=== PATIENT | female | born 1990 | race Caucasian/White ===

== ENCOUNTER → 2022-07-11 10:42 | Outpatient (CLI) | payer BC, SELFPAY ==
[2022-07-11 11:45] LABS: Basophils % 0.3 % (0.1-2.0); Eosinophils # 0.1 K/mm3 (0.0-0.4); Eosinophils % 0.7 % (0.1-12.0); Hemoglobin 11.8 g/dL (12.2-16.2); Lymphocytes # 1.9 K/mm3 (0.7-4.5); Lymphocytes % 14.7 % (10-50); Mean Corpuscular HGB Conc 34.9 g/dL (31.8-35.4); Mean Corpuscular Hemoglobin 29.6 pg (27.0-31.2); Mean Corpuscular Volume 84.9 fl (81-99); Mean Platelet Volume 7.6 fl (7.4-10.4); Monocytes # 0.3 K/mm3 (0.1-1.0); Monocytes % 2.3 % (1.7-9.3); Neutrophils # 10.3 K/mm3 (1.8-7.8); Neutrophils % 82.1 % (37.0-80.0); Platelet Count 358 K/mm3 (142-424); Red Cell Distribution Width 14.2 % (11.5-17.5); White Blood Count 12.6 K/mm3 (4.8-10.8)
[2022-07-11 12:27] LABS: Glucose,Fasting 121 mg/dl (74-100)
[2022-07-11 14:11] LABS: Glucose 1 Hour 134 mg/dL (74-100)
== END ==
PROVIDERS: PCP Family Medicine; Visit Provider Student in an Organized Health Care Education/Training Program
DX: Z34.82 Encounter for supervision of other normal pregnancy, second trimester (principal); Z3A.20 20 weeks gestation of pregnancy
CPT/HCPCS: 36415; 82951; 85025

== ENCOUNTER → 2023-04-24 10:24 | Outpatient (CLI) | payer BC, SELFPAY ==
--- NOTE | 2023-04-24 10:31 | XR_ITS ---
PROCEDURE INFORMATION: Exam: XR Left Knee Exam date and time: 04/24/2023 10:37 AM Age: 32 years old Clinical indication: Left; Patient HX: PT C/O pain when bending knee TECHNIQUE: Imaging protocol: Radiologic exam of the left knee. Views: 4 or more views. Total images: 4 COMPARISON: No relevant prior studies available. FINDINGS: Bones/joints: There are mild degenerative changes of the knee joint, predominantly involving the medial joint compartment. No evidence of acute fracture or dislocation. Soft tissues: Soft tissues are within normal limits. IMPRESSION: 1. There are mild degenerative changes of the knee joint, predominantly involving the medial joint compartment. 2. No evidence of acute fracture or dislocation.
== END ==
LOC: RAD 10:25
PROVIDERS: PCP Family Medicine; Visit Provider Family Medicine
DX: M25.562 Pain in left knee (principal)
CPT/HCPCS: 73564

== ENCOUNTER 2024-01-22 17:26 | Emergency (ER) | payer BC, SELFPAY ==
[2024-01-22 17:43] VITALS: BP 121/70; PULSE 120; RESP 18; TEMP 37.8; O2SAT 97; BMI 37.5
--- NOTE | 2024-01-22 17:50 | EXP.UTC ---
Discharge Plan Disposition Patient Disposition: Home, Self-Care Condition: Good Prescriptions Prescriptions: New azithromycin 250 mg tablet See Rx Instructions .ROUTE .COMPLEX Qty: 6 0RF Rx Instructions: For 250 mg dose pack: take 500 mg today (day 1), then 250 mg for 4 days (days 2-5) methylprednisolone [Medrol (Thanh)] 4 mg tablets,dose pack See Rx Instructions .ROUTE .COMPLEX 6 Days Qty: 21 0RF Rx Instructions: 4 mg orally ;Medrol dose taper thanh benzonatate 100 mg capsule 100 mg PO TID PRN (Reason: cough) Qty: 30 0RF Referrals Follow up/Referrals: Provider,Referral, MD [Primary Care Provider] - See instructions Activity Restrictions/Add. Instructions Additional Instructions/Restrictions: Take medication as prescribed. If symptoms persist or worsen, return to clinic or go to PCP. If you become short of air, return to the ER. Take Tylenol/Ibuprofen as needed for pain/fever. Clinical Impressions Clinical Impression: Upper respiratory tract infection Qualifiers: URI type: unspecified URI Qualified Code(s): J06.9 - Acute upper respiratory infection, unspecified Instructions Patient Instructions: DI for Viral Upper Respiratory Infection -- Adult, Acute Bronchitis, DI for Fever (Symptom) -- Adult Print Language Print Language: Maltese Discharge ED Provider: Carley Singh [facility] General Stated complaint: fever 102.5 , cough, congestion, throat and ears h Mode of Arrival: Ambulatory Source of Information: Patient Limitations: No Limitations Time Seen by Provider: 01/22/24 17:50 Description of Symptoms (Recalled from Triage Doc. by RN): Patient reports fever, cough, congestion, headache, earache, and sore throat. HEENT Symptoms (Recalled from RN notes): Yes Resp Symptoms (Recalled from RN notes): No Skin Symptoms (Recalled from RN notes): No MS Symptoms (Recalled from RN notes): No Functional Status (Recalled from RN notes): wnl History of Present Illness Provider Complaint: Patient reports fever, cough, congestion, headache, earache, and sore throat. Pt reports that she started getting sick last week and then yesterday her phlegm changed to a green color and she started running fevers up to 101. She states that she has taken Delsym and Tylenol for her symptoms. 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 Related Data Previous Rx's ?Medication ?Instructions ?Recorded azithromycin 250 mg tablet See Rx Instructions PO .COMPLEX #6 01/22/24 tabs benzonatate 100 mg capsule 100 mg PO TID PRN cough #30 caps 01/22/24 methylprednisolone 4 mg tablets in See Rx Instructions .Route 01/22/24 a dose pack (Medrol (Thanh)) .COMPLEX 6 days #21 tabs Allergies Allergy/AdvReac Type Severity Reaction Status Date / Time acetaminophen [From Lortab] Allergy Rash Verified 01/22/24 17:46 hydrocodone [From Lortab] Allergy Rash Verified 01/22/24 17:46 Worker's Comp Is this a Worker's Comp case?: No [facility] Disclaimer: The information contained in this section may have been updated after the patient was seen, as this information can be updated by other users. Social History Smoking Status: Never smoker alcohol intake: current alcohol intake frequency: holidays/special occasions only current occupational status: employed Travel in the last 8 weeks: Inside the [place] ROS Obtained: Yes All systems reviewed & no additional complaints except as documented Constitutional Constitutional: Reports system reviewed and no additional complaints, except as documented, Reports fever(s), Reports headache(s) and Reports malaise Eyes Eyes: Reports system reviewed and no additional complaints, except as documented ENT Ears, Nose, Mouth, and Throat: Reports system reviewed and no additional complaints, except as documented, Reports otalgia, Reports headache(s), Reports nasal discharge and Reports sore throat Cardiovascular Cardiovascular: Reports system reviewed and no additional complaints, except as documented Respiratory Respiratory: Reports system reviewed and no additional complaints, except as documented, Reports change in phlegm color, Reports chest congestion and Reports cough Gastrointestinal Gastrointestingal: Reports system reviewed and no additional complaints, except as documented Genitourinary Female Genitourinary: Reports system reviewed and no additional complaints, except as documented Musculoskeletal Musculoskeletal: Reports system reviewed and no additional complaints, except as documented Integumentary/Breasts Skin/Breast: Reports system reviewed and no additional complaints, except as documented Neurologic Neurologic: Reports system reviewed and no additional complaints, except as documented and Reports headache(s) Endocrine Endocrine: Reports system reviewed and no additional complaints, except as documented Hematologic/Lymphatic Henatologic/Lymphatic: Reports system reviewed and no additional complaints, except as documented Allergic/Immunologic Allergic/Immunologic: Reports system reviewed and no additional complaints, except as documented Physical Exam General General appearance: alert Comment: ill appearing Head Head exam: atraumatic and normocephalic Eye Eye exam: Present normal appearance ENT ENT exam: Present mucous membranes moist Expanded ENT Exam External ear exam: Present normal external inspection TM/Canal exam: Bilateral TM: bulging and effusion (clear bubbles) Nasal speculum exam: Bilateral: other (clear drainage) Mouth exam: Present normal external inspection Teeth exam: Present normal inspection Comment: tonsils absent Post nasal drainage noted Neck Neck exam: Present normal inspection; Absent lymphadenopathy Chest Chest inspection: Present normal inspection and symmetric chest wall rise Respiratory Respiratory exam: Present other (course sounds throughout with bilateral lower lobe crackles) Cardiovascular Cardiovascular exam: Present tachycardia and normal heart sounds Abdominal Exam Abdominal exam: Present soft and normal bowel sounds Extremities Exam Extremities exam: Present normal inspection Back Exam Back exam: Present normal inspection Neurological Exam Neurological exam: Present alert and oriented X3 Psychiatric Psychiatric exam: Present normal affect and normal mood Skin Skin exam: Present warm, dry and intact Lymphatic Lymphatic Findings: no adenopathy Medical Decision Making Medical Records Screening: Per USPSTF and CDC recommendations, given the prevalence of disease in our region, it is our hospital?s policy to screen for HIV and viral Hepatitis for all patients aged 18 and over and those with ongoing risk factors. Napoleon Inquiry Pt receiving controlled substance: No Napoleon was queried for this patient: No Vital Signs: 01/22/24 17:43 Temperature 100.1 F H Temperature Source Oral Pulse Rate [Radial] 120 H Respiratory Rate 18 Blood Pressure [Right Arm] 121/70 Blood Pressure Mean [Right Arm] 87 Blood Pressure Source [Right Arm] Automatic Cuff Blood Pressure Position [Right Arm] Sitting 02 Sat by Pulse Oximetry 97 Oxygen Delivery Method Room Air Orders (Tests/Meds): ORDERS Category Date Time Status Rapid PCR Covid and Flu A/B Stat Lab 01/22/24 17:46 Ordered
[2024-01-22 17:57] LABS: Coronavirus 19, PCR Not Detected (NotDetected); Influenza A, PCR Not Detected (NotDetected); Influenza B, PCR Not Detected (NotDetected)
[2024-01-22 18:29] VITALS: BP 121/70; PULSE 120; RESP 18; TEMP 37.8; O2SAT 97
== END 2024-01-22 18:30 | disposition home or self-care (01) ==
PROVIDERS: Emergency Provider Nurse Practitioner Family
DX: J20.9 Acute bronchitis, unspecified (principal); R50.9 Fever, unspecified; R51.9 Headache, unspecified; H92.03 Otalgia, bilateral; J06.9 Acute upper respiratory infection, unspecified
CPT/HCPCS: 87636; 99204; 99212; G0463

== ENCOUNTER 2025-03-08 07:35 | Outpatient (CLI) | payer BC, SELFPAY ==
--- OUTSIDE RECORDS SUMMARY | 2024-12-07 10:00 | XMS_ITS ---
Author Organization [facility], [place], operated by [facility] Address [address] [facility] [address] [place] [address] Care Team Providers Care Retail Sales Specialist Name Role Phone Elvira Tomlinson Unavailable [phone] Sultana Damian Unavailable [phone] REASON FOR VISIT 4 week follow up Social History Tobacco Use: Social History Observation Description Date Details (start date - stop date) Never Smoker NA - NA Sex Assigned At : Social History Observation Description Sex Assigned At Female Social History Drugs/Alcohol: Social Info Question Answer Notes Drugs Have you used drugs other than those for medical reasons in the past 12 months? No Alcohol Screen Did you have a drink containing alcohol in the past year? Yes How often did you have a drink containing alcohol in the past year? Monthly or less (1 point) Points 1 Interpretation Negative Tobacco Use: Social Info Question Answer Notes Tobacco Use/Smoking Are you a nonsmoker Encounters Encounter Location Date Provider Diagnosis [facility]- [address] [facility] [address] [place] [address] 12/07/2024 Sultana Damian Plan Of Treatment Next Appt Details Provider Name:Sultana Rickie, 03/15/2025 02:45:00 PM, [address] [facility] [address], [place], [address], Progress Notes * Oliva HENSONDOB:1990 (34 yo F)Acc No.[id number]:12/07/2024 Progress Note Patient: Oliva Amaya Provider: Nicolle Damian APRN :1990 A ge:34 Y S ex:Female Date:12/07/2024 Address:[address], [id number] Subjective: * Chief Complaints: * 4 week follow up * Medical History: Anemia Anxiety Asthma Depression Chronic hypertension in Chronic hypertension in * 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 * OB History: P regnancy History (GPA) Total Pregnancies 2 Full Term 1 Premature 0 AB. Induced 0 AB. Spontaneous 0 Ectopics 0 Multiple Births 0 Living 1 G P : 2 Para: l ivin P regnancy # 1: , Female- Tita, Primary C/S, 6 lbs 11 oz, breast feed, Dr. Tomlinson at [place], 40 weeks,. P regnancy # 2: , , tubal, chronic hypertension, tachycardia, willy-M, Dr. Tomlinson, 7lbs 6.9 oz, 39 weeks. * Surgical History: Tonsillectomy Laparoscope Oral Surgery with sterilization 10/14/2022 * Hospitalization/Major Diagno stic Procedure: 05-05-2017 10/14/22 * Family History: F ather: diagnosed with Unspecified essential hypertension. M atececilio Grand Father: diagnosed with Heart disease, Diabetes mellitus without mention of complication, type II or unspecified type, not stated as uncontrolled, Unspecified essential hypertension. P aternal Grand Mother: diagnosed with Diabetes mellitus without mention of complication, type II or unspecified type, not stated as uncontrolled, Breast cancer. * Social History: T obacco Use: T obacco Use/Smoking A re you a n onsmoker D rugs/Alcohol: D rugs H ave you used drugs other than those for medical reasons in the past 12 months? N o Alcohol Screen D id you have a drink containing alcohol in the past year? Y es H ow often did you have a drink containing alcohol in the past year? M onthly or less (1 point) P oints 1 I nterpretation N egative * Electronic signature of Darrick Damian NP on 03/08/2025 at 07:37 AM EST Sign off status: Pending Visit Status: R /S (Rescheduled) * Provider: Nicolle Damian APRN Date: 0 12/07/2024 Generated for Julio Abraham/Sandro on: 1 05/08/2024 07:37 AM EST
--- OUTSIDE RECORDS SUMMARY | 2025-03-08 07:37 | XMS_ITS | Clinical Summary ---
Author Organization [facility] Address [address] [place] [address] Care Team Providers Care Commanding Officer Homicide Squad Name Role Phone Unavailable Primary Care Provider Unavailabl e Immunizations Immunization Administration Dates Next Due Tdap 03/15/2017 Family History Medical History Relation Name Comments Breast cancer Paternal Grandmother Relation Name Status Comments Paternal Grandmother Social History Tobacco Use Types Packs/Day Years Used Date Smoking Tobacco: Never Comments Unknown Sex and Gender Information Value Date Recorded Sex Assigned at Not on file Legal Sex Female 7:32 PM EDT Gender Identity Not on file Sexual Orientation Not on file Last Filed Vital Signs Vital Sign Reading Time Taken Comments Blood Pressure 133/78 10/11/2019 10:14 AM EDT Pulse 93 10/11/2019 10:14 AM EDT Temperature - - Respiratory Rate - - Oxygen Saturation - - Inhaled Oxygen Concentration - - Weight 111 kg (245 lb 2.4 oz) 10/11/2019 10:14 A M EDT Height 152.4 cm (5') 10/11/2019 10:14 AM EDT Body Mass Index 47.88 10/11/2019 10:14 AM EDT Plan of Treatment Not on file
--- OUTSIDE RECORDS SUMMARY | 2025-03-08 07:38 | XMS_ITS | Clinical Summary ---
[facility] [address] [place] [address] Care Team Providers Care Mobile Paint Specialist Name Role Phone Ava Kinsey Primary Care Provider [phone] Allergies Active Allergy Reactions Criticality Noted Date Comments Hydrocodone-Acetaminophen Itching 06/03/2016 Medications albuterol sulfate HFA 108 (90 Base) MCG/ACT inhaler INHALE 2 PUFFS INTO THE LUNGS EVERY 4 HOURS NEEDED FOR COUGH 09/30/2022 Active dilTIAZem CD (CARDIZEM CD) 120 MG 24 hr capsule Take 1 capsule by mouth Daily. 07/30/2022 Active fluticasone (FLONASE) 50 MCG/ACT nasal spray 2 sprays by Each Nare route Daily. 08/19/2022 Active nystatin (MYCOSTATIN) 320527 UNIT/GM powder 10/12/2022 Active omeprazole (priLOSEC) 20 MG capsule Take 1 capsule by mouth Daily. 07/30/2022 Active levocetirizine (XYZAL) 5 MG tablet Take 1 tablet by mouth Every Evening. Active Vit-Fe Fumarate-FA ( 27-1) 27-1 MG tablet tablet Take by mouth Daily. Active docusate sodium 100 MG capsule Take 1 capsule by mouth 2 (Two) Times a Day As Needed for Constipation . 60 capsule 10/16/2022 10:46 AM EDT 10/16/2022 Active ibuprofen (ADVIL,MOTRIN) 600 MG tablet Take 1 tablet by mouth Every 6 (Six) Hours. 60 tablet 10/16/2022 10:46 AM EDT 10/16/2022 Active Active Problems Problem Noted Date Diagnosed Date Term 10/05/2022 Encounters Date Type Department Care Team Description 01/02/2025 3:55 PM EDT Lab [facility] [place] [address] [place] [address] Decreased libido 01/02/2025 Travel from Last 3 Months Social History Tobacco Use Types Packs/Day Years Used Date Smoking Tobacco: Never Smokeless Tobacco: Never Tobacco Cessation:Counseling Given: Not Answered Alcohol Use Standard Drinks/Week Comments Not Currently 0 (1 standard drink = 0.6 oz pur e alcohol) AUDIT-C Answer Date Recorded Q1: How often do you have a drink containing alcohol? Never 10/14/2022 Q2: How many drinks containi ng alcohol do you have on a typical day when you are drinking? Patient does not drink Q3: How often do you have si x or more drinks on one occasion? Never 10/14/2022 [place] Depression Scale Answer Date Recorded [place] Depression Scale Total 1 10/14/2022 The thought of harming myself has occurred to me . Unrecognized value 10/14/2022 Abuse Screen Answer Date Recorded Unsafe at Home or Work/School Not on file Feels Threatened by Someone? Not on file Does Anyone Keep You from Co ntacting Others or Doint Things Outside the Home? Not on file 10/17/2023 Physical Sign of Abuse Present Not on file 0 10/17/2023 Housing Stability Answer Date Recorded Current Living Arrangements Not on file 09/25 Potentially Unsafe Housing Conditions Not on bean e 10/17/2023 Family and Community Support Answer Joe e Recorded Help with Day-to-Day Activities Not on file 02/05/2023 Lonely or Isolated Not on file 02/05/2023 Employment Answer Date Recorded Do you want help finding or keeping work or a sandi b? Not on file 02/05/2023 Disabilities Answer Date Recorded Concentrating, Remembering, or Making Decisions Difficulty Not on file 10/17/2023 Doing Errands Independently Difficulty Not on fi le 10/17/2023 Education Answer Date Recorded Help with school or training? Not on file Preferred Language Not on file 02/05/2023 Comments No Sex and Gender Information Value Date Recorded Sex Assigned at Female 03/07/2025 8:52 AM EST Legal Sex Female 4:40 PM EST Gender Identity Not on file Sexual Orientation Not on file Last Filed Vital Signs Vital Sign Reading Time Taken Comments Blood Pressure 119/65 10/16/2022 7:25 AM EDT Pulse 98 10/16/2022 7:25 AM EDT Temperature 36.8 C (98.2 F) 10/16/2022 7:25 AM EDT Respiratory Rate 20 10/16/2022 7:25 AM EDT Oxygen Saturation 100% 10/14/2022 10:40 AM EDT Inhaled Oxygen Concentration - - Weight 124 kg (274 lb) 10/14/2022 11:24 AM EDT Height 152.4 cm (5') 10/14/2022 11:24 AM EDT Body Mass Index 53.51 10/14/2022 11:24 AM EDT Plan of Treatment Upcoming Encounters Date Type Department Care Team (Late st Contact Info) Description 03/09/2025 9:15 AM EST Office Visit [facility] [address] [phone] Ewelina Faye [place] [address] [address] Health Maintenance Due Date Last Done Comments Annual Gynecologic Pelvic an d Breast Exam 1988 TDAP/TD VACCINES (1 - Tdap) 07/08/2007 PAP SMEAR 2009 ANNUAL PHYSICAL 10/12/2022 INFLUENZA VACCINE 11/24/2024 HEPATITIS C SCREENING Completed 03/11/2022 Pneumococcal Vaccine 0-49 Aged Out No longer eligible based on patient's age to complete this topic Procedures Procedure Name Priority Date/Time Associated Diagnosis Comments VITAMIN D,25-HYDROXY Routine 01/02/2025 3:58 PM EDT Decreased libido T4, FREE Routine 01/02/2025 3:58 PM EDT Decreased libido TSH Routine 01/02/2025 3:58 PM EDT Decreased libido TESTOSTERONE, FREE, TOTAL Routine 01/02/2025 3:58 PM EDT Decreased libido PROGESTERONE Routine 01/02/2025 3:58 PM EDT Decreased libido ESTRADIOL Routine 01/02/2025 3:58 PM EDT Decreased libido FOLLICLE STIMULATING HORMONE Routine 01/02/2025 3:58 PM EDT Decreased libido SCANNED - LABS 01/02/2025 HEPATITIS C ANTIBODY Routine 03/11/2022 4:54 PM EST 8 weeks gestation of from Last 3 Months or Most Recently Relevant to Health Maintenance Results * Vitamin D 25 Hydroxy (01/02/2025 3:58 PM EDT) 25 Hydroxy, Vitamin D 82.1 30.0 - 100.0 ng/ml 01/02/2025 11:54 PM EDT [facility] Blood Venipuncture / Unknown 01/02/2025 3:58 PM EDT 01/02/2025 4:01 PM EDT Narrative [facility] - 01/02/2025 11:54 PM EDT Reference Range for Total Vitamin D 25(OH) Deficiency <20.0 ng/mL Insufficiency 21-29 ng/mL Sufficiency 30-100 ng/mL Toxicity >100 ng/ml Sultana Damian SURVEY MANAGER LAB BLOOD ORDERABLES Final Re sult [facility]
[address] [place] [address], * Progesterone (01/02/2025 3:58 PM EDT) Progesterone 0.66 ng/mL 01/03/2025 12:28 AM EDT [facility] Blood Venipuncture / Unknown 01/02/2025 3:58 PM EDT 01/02/2025 4:01 PM EDT [facility] - 01/03/2025 12:28 AM EDT Progesterone Reference Ranges: Adult Males: 0.0-0.5 ng/mL Adult Femles: Follicular phase 0.1-0.9 ng/mL Ovulation phase 0.1-12.0 ng/mL Luteal phase 1.8-23.9 ng/mL Postmenopausal 0.0-0.1 ng/mL : First Trimester 11.0-44.3 ng/mL Second Trimester 25.4-83.3 ng/mL Third Trimester 58.7-214.0 ng/mL Results may be falsely increased if patient taking Biotin. [facility] LAB BLOOD ORDERABLES Final Re sult [facility]
[address] [place] [address], * Estradiol (01/02/2025 3:58 PM EDT) Estradiol 677.0 pg/mL 01/03/2025 12:28 AM EDT [facility] Blood Venipuncture / Unknown 01/02/2025 3:58 PM EDT 01/02/2025 4:01 PM EDT [facility] - 01/03/2025 12:28 AM EDT Estradiol Reference Ranges: Adult Males: 7.6-42.6 pg/mL Adult Femles: Follicular phase 12.5-166.0 pg/mL Ovulation phase 85.8-498.0 pg/mL Luteal phase 43.8-211.0 pg/mL Postmenopausal <6.0-54.7 pg/mL : First Trimester 215.0- >4300.0 pg/mL Child (1-10 years): Male <6.0-20.0 pg/mL Female 6.0-27.0 pg/mL Results may be falsely increased if patient taking Biotin. us Sultana Damian SURVEY MANAGER LAB BLOOD ORDERABLES Final Re sult Performing Organization Address [facility]/ZIP Co de Phone Number [facility]
[address] [place] [address], * Testosterone, Free, Total (01/02/2025 3:58 PM EDT) Testosterone, Total 13 8 - 60 ng/dL 01/11/2025 1:07 AM EDT [facility] Testosterone, Free <0.2 0.0 - 4.2 pg/mL 01/11/2025 1:07 AM EDT [facility] Blood Venipuncture / Unknown 01/02/2025 3:58 PM EDT 01/02/2025 4:01 PM EDT Narrative [facility] - 01/11/2025 1:07 AM EDT [facility]formed at: [facility] [address] [place] [id number] Hydrography Teacher: Anam Harris PhD, Phone: [phone] Performed at: [address] [id number] Hydrography Teacher: Jv Blanco MD, Phone: [phone] Sultana Damian [facility] LAB BLOOD ORDERABLES Final Re sult Performing Organization Address [facility] Co de Phone Number [facility] [address] [place] [address], * (ABNORMAL) TSH (01/02/2025 3:58 PM EDT) Pathologist [facility] TSH 4.600(H) 0.270 - 4.200 uIU/mL 01/03/2025 12:28 AM EDT [facility] Blood Venipuncture / Unknown 01/02/2025 3:58 PM EDT 01/02/2025 4:01 PM [facility] Final Re sult Performing Organization Address City/[facility]/ZIP Co de Phone Number [facility]
[address] [place] [address], * T4, Free (01/02/2025 3:58 PM EDT) Free T4 1.32 0.92 - 1.68 ng/dL 01/03/2025 12:28 AM EDT [facility] Blood Venipuncture / Unknown 01/02/2025 3:58 PM EDT 01/02/2025 4:01 PM EDT [facility] LAB BLOOD ORDERABLES Final Re sult [facility]
[address] [place] [address], * Follicle Stimulating Hormone (01/02/2025 3:58 PM EDT) FSH 3.76 mIU/mL 01/03/2025 12:28 AM EDT [facility] Blood Venipuncture / Unknown 01/02/2025 3:58 PM EDT 01/02/2025 4:01 PM EDT Narrative [facility] - 01/03/2025 12:28 AM EDT FSH Reference Ranges: Adult Males: 1.5-12.4 mIU/mL Adult Females: Folicular Phase 3.5-12.5 mIU/ml Ovulation Phase 4.7-21.5 mIU/ml Lutal Phase 1.7-7.7 mIU/ml Postmenopausal 25.8-134.8 mIU/ml [facility] LAB BLOOD ORDERABLES Final Re sult [facility]
[address] [place] [address], * LABS SCANNED (01/02/2025) us [facility] LAB BLOOD ORDERABLES Final Re sult * Hepatitis C Antibody (03/11/2022 4:54 PM EST) Hepatitis C Ab Non-Reacti ve Non-Reacti ve 03/12/2022 2:08 AM EST [facility] Blood Venipuncture / Unknown 03/11/2022 4:54 PM EST 03/11/2022 4:54 PM EST Narrative [facility] - 03/12/2022 2:08 AM EST Results may be falsely decreased if patient taking Biotin. us Elvira Tomlinson MD LAB BLOOD ORDERABLES Final Re sult [facility]
[address] [place] [address], from Last 3 Months or Most Recently Relevant to Health Maintenance Insurance [employer] Member Subscriber Plan / Payer (Ef fective 2021-Present) Name:Oliva Vanegas Relation to Subscriber:Self Name:Oliva Vanegas Payer ID:[id number] (NAIC) Type:Not on file Address: [facility] [id number] [phone] Advance Directives * CPR (Attempt to Resuscitate) (Latest Code Status on File) Date Activated Date Inactivated Comments 10/14/2022 10:55 AM 10/16/2022 5:09 PM Question Answer Comments Code Status (Patient has no pulse and is not breathing): CPR (Attempt to Resuscitate) Medical Interventions (Patie nt has pulse or is breathing): Full * CPR (Attempt to Resuscitate) Date Activated Date Inactivated Comments 10/14/2022 6:15 AM 10/14/2022 10:55 AM Question Answer Comments Code Status (Patient has no pulse and is not breathing): CPR (Attempt to Resuscitate) Medical Interventions (Patie nt has pulse or is breathing): Full Support Level Of Support Discussed With: Patient Care Teams Mobile Paint Specialist Relationship Specialty Start Date End Date Ava Kinsey PA [address] [place] [address] PCP - General 03/07/25
--- OUTSIDE RECORDS SUMMARY | 2025-03-08 07:38 | XMS_ITS | Continuity of Care Document ---
Author Organization [facility] Smart Plate, James [employer] [facility] Address [address] [place] [address] Care Team Providers Care Skill Labor Name Role Phone GENARO NICOLE Primary Care Provider [phone] Assessment No assessment recorded. Plan of Treatment Reminders Order Date Submit Date Provider Last Modified By Organization Details Last Modified Time Details Appointments BH NEW INTAKE 60 2024 02:00P Carlos Alberto Barney DNP Not available Not available Not available Lab T3, free, serum or plasma 2024 025 [facility] [address] [place], [address], 03/01/2025 20:07:58 T4, free, serum 2024 025 [facility] [address] [place], [address], 03/01/2025 20:07:58 TSH, serum or plasma 2024 025 [facility] [address] [place], [address], 03/01/2025 20:07:53 thyroid peroxidas e (tpo) Ab, serum 2024 025 [facility] [address] [place], [address], 03/01/2025 20:07:57 tsi (thyroid- stimulati ng immunoglo bulin), serum [address] [facility] [address] [place], [address], 03/01/2025 20:07:56 dhea, serum [address] [facility] [address] [place], [address], 03/01/2025 20:07:54 insulin, serum 2024 025 [facility] [address] [place], [address], 03/01/2025 20:07:57 prolactin , serum [address] [facility] [address] [place], [address], 03/01/2025 20:07:55 anti-andrew erian hormone (amh), serum [address] [facility] [address] [place], [address], 03/01/2025 20:07:53 iron + TIBC + ferritin, serum [address] [facility] [address] [place], [address], 03/01/2025 20:07:52 HFE gene mutation analysis, blood or tissue [address] [facility] [address] [place], [address], 03/01/2025 20:07:54 RODNEY (antinucl ear antibodie s) screen, serum [address] [facility] [address] [place], [address], 03/01/2025 20:07:56 erythrocy te sedimenta tion rate by westergre n method [address] [facility] [address] [place], [address], 03/01/2025 20:07:56 C reactive protein, QN, serum or plasma [address] [facility]), [address] [place], [address], 03/01/2025 20:07:57 rf (rheumato id factor), serum [address] [facility]), [address] [place], [address], 03/01/2025 20:07:55 Hepatitis C IgG Ab, qual, serum [address] [facility]), [address] [place], [address], 03/01/2025 20:07:53 HIV 1 + 2, meaningfu l use set [address] [facility]), [address] [place], [address], 03/01/2025 20:07:55 Referral None recorded. Procedures None recorded. Surgeries None recorded. Imaging None recorded. Medication Orders None recorded. Patient TargetsNo targets recorded. Patient Instructions Encounter Date Encounter Id Patient Instructions Last Modified By Organization Details Last Modified Time 02/19/2025 leg and ankle edema: care instructions [email or web address] Not available 02/19/2025 17:45:04 Decreased Female Libido: Care Instructions [email or web address] Not available 02/19/2025 17:45:04 mental health assessment* SHERLY Not available 02/20/2025 15:37:06 MHI Packet Adult [email or web address] Not available 02/19/2025 16:58:59 HIV testing: car e instructions Not available 02/20/2025 10:18:02 Reason for Referral None Reported. Results Created Date Observation Date Name Description Value Unit Range Abnormal Flag Note LastModifiedBy Organization Detail LastModifiedTime 02/21/2002/21/2025 FE+TI BC+FE R iron bind.cap.(TI BC) 262 ug/dL 250-45 0 normal Not Available [facility] ([facility]) [address], [place], [address], 03/01/2025 20:07:52 02/21/20 25 02/21/2025 FE+TI BC+FE R UIBC 171 ug/dL 131-42 5 normal Not Available [facility] ([facility]) [address] [place], [address], 03/01/2025 20:07:52 02/21/20 25 02/21/2025 FE+TI BC+FE R iron 91 ug/dL 27-159 normal Not Available [facility] ([facility]) [address] [place], [address], 03/01/2025 20:07:52 02/21/2002/21/2025 FE+TI BC+FE R iron saturation 35 % 15-55 normal Not Available [facility] ([facility]) [address] [place], [address], 03/01/2025 20:07:52 02/21/20 25 02/21/2025 FE+TI BC+FE R ferritin 329 NG/mL 15-150 above high normal Not Available [facility] ([facility]) [address] [place], [address], 03/01/2025 20:07:52 02/21/2002/21/2025 HCV ANTIB JOAN CASCA DE(PC R/GEN O) HCV Ab Non Reacti ve non reacti ve Not Available [facility] ([facility]) [address] [place], [address], 03/01/2025 20:07:53 02/21/20 25 02/21/2025 HCV ANTIB JOAN CASCA DE(PC R/GEN O) interpretati on: Commen t Not infec bertram with HCV unles s early or acute infec tion is suspe cted (whic h may be delay ed in an immun ocomp romis ed indiv idual ), or other evide nce exist s to indic ate HCV infec tion. Not Available [facility] ([facility]) [address], [place], [address], 03/01/2025 20:07:53 02/21/20 25 02/22/2025 ANTI- MULLE DANO HORMO NE (AMH) anti-mulleri an hormone (amh) 1.09 NG/mL For assay s emplo wayne antib odies , the possi bilit y exist s for inter feren ce by heter ophil e antib odies in the sampl es.1 1.Angie [place]. Inter feren dannielle in Immun oassa ys - still a threa t. Clin. Chem. 2000; 46: 1037- 1038. This test was devel misael and its perfo rmanc e zackary cteri stics deter mined by [facility]. It has not been clear ed or appro myra by the Food and Drug Admin istra tion. Refer ence Range : Femal es 36 - 40y: 0.42 - 8.34 Media n 1.69 AMH jamarcus ntrat ions of >= 1.06 ng/mL is corre lated with a william r respo nse to ovari an stimu latio n, produ chichi more retri evabl e oocyt es and highe r odds of live accor ding to Nyla sandra et al. Trisha white and Steri lity. 2010: 94:28 24-28 27. [facility] nt AMH test metho d corre lates with the study metho d with a slope of 0.94. Femal es at risk of ovari an hyper stimu latio n syndr ome or polyc ystic ovari an syndr ome (PCOS ) may exhib it eleva bertram serum AMH jamarcus ntrat ions. AMH level s from PCOS patie nts may be 2 to 5 fold highe r than age-a pprop riate refer ence inter miracle value s. Granu losa cell tumor s of the ovary may secre te AMH along with other tumor marke rs. [facility] bertram AMH is not speci fic for cris flannery , and the assay shoul d not be used exclu sivel y to diagn ose or exclu de an AMH-s ecret ing ovari an tumor . Not Available [facility] [address] [facility] [address], [place], [address], 03/01/2025 20:07:53 02/21/20 25 02/26/2025 THYRO ID STIMU LATIN G HORMO NE TSH-icma 4.1 uu/mL Refer ence Range : Non-P regna nt Adult 0.450 -4.50 0 Pregn maxine First Trime ster 0.100 -4.00 0 Secon d Trime ster 0.200 -4.00 0 Third Trime ster 0.300 -4.50 0 Not Available [facility] [address] [facility] [address], [place], [address], 03/01/2025 20:07:53 02/21/2002/26/2025 HERED .HEMO CHROM ATOSI S, DNA hereditary hemochromato sis Commen t Resul ts: c.845 G>A (p.Cy s282T yr) - Not Detec bertram c.187 C>G (p.Hi s63As p) - Detec bertram, heter ozygo us c.193 A>T (p.Se r65Cy s) - Not Detec bertram Not assoc iated with incre ased risk to devel op clini courtney sympt oms of Hered itary Hemoc hroma tosis . In sympt omati c indiv idual s, other cause s of iron overl oad shoul d be evalu ated. See Addit ional Infor matio n and Comme nts. Addit ional Clini courtney Infor matio n: Hered itary hemoc hroma tosis (HFE relat ed) is an autos omal reces sive iron stora ge disor felix. Patie nts may have a chinmay ic diagn osis of hered itary hemoc hroma tosis and never show clini courtney sympt oms. Clini courtney sympt oms typic ally appea r betwe en 40 to 60 years in males and after menop ause in femal es. Signs and sympt oms may inclu de organ damag e, prima rily in the liver , risk for hepat ocell ular carci noma, diabe alexandrea, and heart disea se due to iron accum ulati on. Life expec tancy may be decre ased in indiv idual s who devel op cirrh osis. Treat ment for clini manuel sympt omati c indiv idual s may inclu de thera peuti c phleb otomy . Liver trans plant may be used to treat end stage liver failu re. For preve ntive care, monit oring for iron overl oad is recom arvin d for patie nts who are homoz ygous for c.845 G>A (p.Cy s282T yr) and have yet to exper ience clini courtney sympt oms. Comme nts: The most commo n HFE varia nts assoc iated with hered itary hemoc hroma tosis are c.845 G>A (p.Cy s282T yr), c.187 C>G (p.Hi s63As p), c.193 A>T (p.Se r65Cy s). While patie nts homoz ygous for c.845 G>A (p.Cy s282T yr) are the most likel y to prese nt clini courtney sympt oms, less than 10% devel op clini manuel signi fican t iron overl oad with tissu e and organ damag e. Chinmay ic couns eling is recom arvin d to discu ss the poten tial clini courtney impli catio ns of posit je resul ts, as well as recom menda tions for testi ng famil y membe rs. Chinmay ic Coord inato rs are avail able for healt h care provi ders to discu ss resul ts at [phone] Test Detai ls: Three varia nts ramos zed: c.845 G>A (p.Cy s282T yr), commo nly refer red to as C282Y c.187 C>G (p.Hi s63As p), commo nly refer red to as H63D c.193 A>T (p.Se r65Cy s), commo nly refer red to as S65C Metho ds/Li mitat ions: DNA Ramos sis of the HFE gene ([id number]) was perfo rmed by PCR ampli ficat ion follo wed by restr ictio n enzym e diges tion ramos ses. Resul ts must be combi magdalene with clini courtney infor matio n for the most accur ate inter preta tion. Molec ular- based testi ng is highl y accur ate, but as in any labor atory test, diagn ostic error s may occur . False posit je or false negat je resul ts may occur for reaso ns that inclu de chinmay ic varia nts, blood trans fusio ns, bone marro w trans plant ation , somat ic or tissu e-spe cific mosai cism, misla beled sampl es, or teresa eous repre senta tion of famil y relat ionsh ips. This test was devel oped and its perfo rmanc e zackary cteri stics deter mined by [facility]. It has not been clear ed or appro myra by the Food and Drug Admin istra tion. Refer ences : Julio BR, Cayetano PC, Frankyl ey KV, Darwin camarillo LW, Josemanuel camarillo ; Ameri can Assoc iatio n for the Study of Liver Disea ses. Diagn osis and manag ement of hemoc hroma tosis : 2011 pract ice guide line by the Ameri can Assoc iatio n for the Study of Liver Disea ses. Hepat ology . 2010;5 4(1): 328-4 3. doi: 10.10 02/he p.243 30. PMID: 78746 290; PMCID : PMC31 21832 . Allie Gonsalez ot P, Nila willis DW, Jb r H, Kane oropeza O, Lucia n S, Almariely o I, Morbrad s M, Dandre y S. EMQN best pract ice guide lines for the molec ular chinmay ic diagn osis of hered itary hemoc hroma tosis (HH). Eur J Hum Chinmay . 2016 Jul;2 4(4): 479-9 5. doi: 10.10 /ej hg.20 15.12 8. Ep2014Oct 31. PMID: 88554 218; PMCID : PMC49 31168 . Not Available [facility] ([facility]) [address], [place], [address], 03/01/2025 20:07:54 02/21/2002/26/2025 HERED .HEMO CHROM ATOSI S, DNA reviewed by: Kingston Aguirer ical [place] nent perfo rmed at [facility] [place] Paola wright [place] nent perfo rmed by: Rain Chavez , PhD, [facility] YJTGD 9, [facility], [address] [place] [address] Not Available [facility] ([facility]) [address] [facility], [place], [address], 03/01/2025 20:07:54 02/21/2003/01/2025 DHEA, SERUM dehydroepian drosterone (DHEA) 123 NG/dL 31-701 Not Available [facility] ([facility]) [address] [place], [address], 03/01/2025 20:07:54 02/21/20 25 02/21/2025 PROLA CTIN prolactin 16.8 NG/mL 4.8-33 .4 normal Not Available [facility] ([facility]) [address] [place], [address], 03/01/2025 20:07:55 02/21/20 25 02/21/2025 RHEUM ATOID FACTO R (RF) rheumatoid factor (rf) 10.0 IU/mL <14.0 normal Not Available [facility] ([facility]) [address] [place], [address], 03/01/2025 20:07:55 02/21/20 25 02/21/2025 HIV AB/P2 4 AG WITH REFLE X HIV Ab/P24 Ag screen Non Reacti ve non reacti ve HIV-1 /HIV- 2 antib odies and HIV-1 p24 antig en were NOT detec bertram. There is no labor atory evide nce of HIV infec tion. HIV Negat je Not Available [facility] ([facility]) [address] [place], [address], 03/01/2025 20:07:55 02/21/20 25 02/24/2025 THYRO ID STIM IMMUN OGLOB ULIN thyroid stim immunoglobul in <0.10 IU/L 0.00-0 .55 Not Available [facility] ([facility]) [address] [place], [address], 03/01/2025 20:07:56 02/21/20 25 02/21/2025 RODNEY W/REF FATEMEH IF POSIT JE RODNEY direct Negati ve negati ve Not Available [facility] ([facility]) [address] [place], [address], 03/01/2025 20:07:56 02/21/20 25 02/21/2025 ERYTH ROCYT E SEDIM ENTAT ION RATE erythrocyte sedimentatio n rate 5 mm/HR 0-32 normal Not Available [facility] ([facility]) [address] [place], [address], 03/01/2025 20:07:56 02/21/20 25 02/21/2025 INSUL IN insulin 7.4 uIU/m L 2.6-24 .9 normal Not Available [facility] ([facility]) [address] [place], [address], 03/01/2025 20:07:57 02/21/20 25 02/21/2025 C-RYAN CTIVE PROTE IN, QUANT C-reactive protein, quant 5 mg/L 0-10 normal Not Available [facility] ([facility]) [address] [place], [address], 03/01/2025 20:07:57 02/21/2002/21/2025 THYRO ID PEROX IDASE (TPO) AB thyroid peroxidase (tpo) Ab 18 IU/mL 0-34 normal Not Available [facility] ([facility]) [address] [place], [address], 03/01/2025 20:07:57 02/21/2002/21/2025 TRIIO DOTHY CLAIRE E (T3), FREE triiodothyro nine (T3), free 2.6 pg/mL 2.0-4. 4 normal Not Available [facility] ([facility]) [address] [place], [address], 03/01/2025 20:07:58 02/21/2002/21/2025 T4,FR EE(DI RECT) T4,free(dire ct) 1.51 NG/dL 0.82-1 .77 normal Not Available [facility] ([facility]) [address] [place], [address], 03/01/2025 20:07:58 Result Notes None recorded. Problems Name Problem SNOMED Code Status Onset Date Resolution Date Notes Provider Name and Address Organization Details Recorded Time Influenz a vaccine needed 44152412039 06 Completed 201905/09/2024 Problem Code: Z23; Problem Code Type: ICD-10; Marily Diaz PA-C [address] [place] [address], [address], [employer] 10:27:52 Dysuria 88376952 Completed 202005/09/2024 Problem Code: R30.0; Problem Code Type: ICD-10; Marily Diaz PA-C [address] [place] [address], [address] 8, [employer] 10:27:12 Acute respirat ory infectio ns 508725820 Completed 202005/09/2024 Problem Code: J22; Problem Code Type: ICD-10; Marily Diaz PA-C [address] [place] [address], [address] 8, [employer] 10:27:02 Bronchit is 97405794 Completed 202005/09/2024 Problem Code: J40; Problem Code Type: ICD-10; Marily Diaz PA-C [address] [place] [address], [address] 8, [employer] 10:27:07 Acute cystitis 12941139 Completed 202105/09/2024 Problem Code: N30.00; Problem Code Type: ICD-10; Marily Diaz PA-C [address] [place] [address], [address] 8, [employer] 10:26:56 Menometr orrhagia 418332768 Active 2024 [place] [place] [address] [place] [address], [address] 8, [employer] 17:39:48 Thyroid stimulat ing hormone level above referenc e range 517118839 Active 2024 [place] [address] [place] [address], [address] 8, [employer] 17:41:04 Edema of lower extremit y 602534832 Active 2024 [place] [address] [place] [address], [address] 8, [employer] 17:41:08 Reduced libido 1247765 Active 2024 [place] [place] [address] [place] [address], 05554[address]498 8, [employer] 17:41:13 Serum ferritin above referenc e range 267164190 Active 2024 [place] [place] [address] [place] [address], 40648[address]027 8, [employer] 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 17:43:26 Anxiety 35091544 Active 2024 [place] [place] [address] [place] [address], 35[address]450 8, [employer] 09:20:56 Primary hypothyr oidism 25887148 Active 2024 [place] [place] [address] [place] [address], 59667-942 8, [employer] 09:21:13 Protein level - finding 749103711 Active 2024 [place] [place] [address] [place] [address], 14978-198 8, [employer] 15:54:05 Problem Notes None recorded. Procedures Surgical History Date Name Laterality Status Provider Name and Address Organization Details Recorded Time 01/04/20 section completed Not Available Count includes the [facility] 09/2021 22:56:12 01/04/20 21 tonsillectomy and adenoidectomy completed Not Available Count includes the [facility] 12/30/2021 22:56:13 total salpingectomy completed [facility] [employer] [facility] 02/19/2025 16:32:20 Imaging Results None recorded. Procedure Notes None recorded. Medical Equipment None Reported. Allergies Allergen ID Allergen Name Allergen Category Reaction Reaction Severity Criticality Documentation Date Start Date Code Code System Note Provider Name and Address Organization Details Recorded Time 98535 acetamino phen / hydrocodo ne medicatio n Not available Not available Not available 12/30/2021 64855 2 RxNorm Not Available Count includes the [facility] 22:56:31 Medications Name Sig Start Date Stop Date Status Note LastModified by Organization Details LastModified Time amoxicillin 500 mg capsule TAKE 1 CAPSULE BY MOUTH EVERY 8 HOURS 01/09 completed Not Available Not Available Not Available promethazin e-DM 6.25 mg-15 mg/5 mL oral syrup take 5 -7.5milli liters by oral route every 4 hours as needed, not to exceed 30 mL in 24 hours 07/07 completed Not Available Not Available Not Available potassium chloride ER 10 mEq capsule,ext ended release TAKE 1 CAPSULE BY MOUTH ONCE DAILY 05/09 completed Not Available Not Available Not Available prednisone 10 mg tablet TAKE 2 TABLETS BY MOUTH ONCE DAILY FOR 2 DAYS, THEN 1 TAB ONCE DAILY FOR 2 DAYS, THEN 1/2 (ONE-HALF ) TAB ONCE DAILY FOR 2 DAYS 01/09 completed Not Available Not Available Not Available azithromyci n 250 mg tablet TAKE 2 TABLETS BY MOUTH TODAY, THEN TAKE 1 TABLET DAILY FOR 4 DAYS 05/09 completed Not Available Not Available Not Available fluconazole 150 mg tablet TAKE 1 TABLET BY MOUTH A ONE TIME DOSE 05/09 completed Not Available Not Available Not Available valacyclovi r 1 gram tablet TAKE 1 TABLET BY MOUTH EVERY 8 HOURS 02/19 completed Not Available Not Available Not Available fluconazole 200 mg tablet take 1 tablet (200 mg) by oral route once daily 08/20 completed Not Available Not Available Not Available phenazopyri dine 200 mg tablet TAKE 1 TABLET BY MOUTH THREE TIMES DAILY 02/19 completed Not Available Not Available Not Available potassium chloride ER 10 mEq tablet,exte nded release TAKE 1 TABLET BY MOUTH ONCE DAILY 05/09 completed Not Available Not Available Not Available ciprofloxac in 250 mg tablet 1 tablet po bid x 7 days 07/08 completed Not Available Not Available Not Available sulfamethox azole 800 mg-trimetho prim 160 mg tablet TAKE 1 TABLET BY MOUTH TWICE DAILY 05/09 completed Not Available Not Available Not Available ondansetron 8 mg disintegrat ing tablet DISSOLVE 1 TABLET ON THE TONGUE EVERY 8 HOURS NEEDED 05/09 completed Not Available Not Available Not Available levothyroxi ne 25 mcg tablet Take 1 tablet every day by oral route for 90 days. 2024 active Not Available Not Available Not Avai lable amoxicillin 875 mg tablet TAKE 1 TABLET BY MOUTH EVERY 12 HOURS FOR 7 DAYS 06/16 completed Not Available Not Available Not Available diltiazem 120 mg tablet take 1 tablet (120 mg) by oral route 3 times per day 05/09 completed Not Available Not Available Not Available famciclovir 500 mg tablet TAKE 1 TABLET BY MOUTH EVERY 8 HOURS FOR 5 DAYS 02/19 completed Not Available Not Available Not Available benzonatate 100 mg capsule 05/09 completed Not Available Not Available Not Available diltiazem ER 90 mg capsule,ext ended release 12 hr TAKE 1 CAPSULE BY MOUTH ONCE DAILY 02/19 completed Not Available Not Available Not Available sertraline 25 mg tablet Take 1 tablet every day by oral route for 90 days. 2024 active Not Available Not Available Not Avai lable omeprazole 20 mg capsule,del ayed release TAKE 1 CAPSULE BY MOUTH EVERY DAY active Not Available Not Available No t Available diltiazem CD 120 mg capsule,ext ended release 24 hr TAKE 1 TABLET BY MOUTH EVERY EVENING 02/19 completed Not Available Not Available Not Available furosemide 20 mg tablet TAKE 1 TABLET BY MOUTH ONCE DAILY 05/09 completed Not Available Not Available Not Available nystatin 100,000 unit/gram topical powder APPLY TO AFFECTED AREA EXTERNALL Y TWICE A DAY 05/09 completed Not Available Not Available Not Available ibuprofen 600 mg tablet 05/09 completed Not Available Not Available Not Available cefuroxime axetil 500 mg tablet TAKE 1 TABLET BY MOUTH TWICE A DAY 08/20 completed Not Available Not Available Not Available methylpredn isolone 4 mg tablets in a dose pack 05/09 completed Not Available Not Available Not Available albuterol sulfate HFA 90 mcg/actuati on aerosol inhaler INHALE 1 TO 2 PUFFS BY MOUTH EVERY 4 TO 6 HOURS 05/09 completed Not Available Not Available Not Available ondansetron 4 mg disintegrat ing tablet DISSOLVE 1 TABLET IN MOUTH EVERY 8 HOURS NEEDED FOR NAUSEA AND VOMITING active Not Available Not Available No t Available cefdinir 300 mg capsule TAKE 1 CAPSULE BY MOUTH TWICE DAILY FOR 7 DAYS 08/30 completed Not Available Not Available Not Available fluticasone propionate 50 mcg/actuati on nasal spray,suspe nsion USE TWO SPRAYS IN EACH NOSTRIL ONCE DAILY FOR 90 DAYS. active Not Available Not Available No t Available amoxicillin 875 mg-laylau m clavulanate 125 mg tablet TAKE 1 TABLET BY MOUTH TWICE DAILY active Not Available Not Available No t Available bupropion HCl XL 150 mg 24 hr tablet, extended release TAKE 1 TABLET BY MOUTH IN THE MORNING 05/09 completed Not Available Not Available Not Available nitrofurant oin monohydrate /macrocryst als 100 mg capsule TAKE 1 CAPSULE BY MOUTH EVERY 12 HOURS FOR 5 DAYS 02/19 completed Not Available Not Available Not Available duloxetine 30 mg capsule,del ayed release TAKE 1 CAPSULE BY MOUTH ONCE DAILY 05/09 completed Not Available Not Available Not Available hydrochloro thiazide 12.5 mg tablet TAKE 1/2 TO 1 (ONE-HALF TO ONE) TABLET BY MOUTH ONCE DAILY 05/09 completed Not Available Not Available Not Available lisdexamfet amine 50 mg capsule TAKE 1 CAPSULE BY MOUTH ONCE DAILY 02/19 completed Not Available Not Available Not Available lisdexamfet amine 30 mg capsule TAKE 1 CAPSULE BY MOUTH ONCE DAILY 05/09 completed Not Available Not Available Not Available lisdexamfet amine 40 mg capsule TAKE 1 CAPSULE BY MOUTH IN THE MORNING 05/09 completed Not Available Not Available Not Available oxycodone 10 mg tablet 05/09 completed Not Available Not Available Not Available Wegovy 2.4 mg/0.75 mL subcutaneou s pen injector INJECT 1 AUTO-INJE CTOR SUBCUTANE OUSLY ONCE A WEEK 02/19 completed Not Available Not Available Not Available Wegovy 0.25 mg/0.5 mL subcutaneou s pen injector 05/09 completed Not Available Not Available Not Available Mounjaro 10 mg/0.5 mL subcutaneou s pen injector Inject 0.5 mL every week by subcutane ous route for 28 days. 2024 active Not Available Not Available Not Avai lable Mounjaro 12.5 mg/0.5 mL subcutaneou s pen injector INJECT 1 PEN UNDER SKIN WEEKLY active Not Available Not Available No t Available Zepbound 10 mg/0.5 mL subcutaneou s pen injector INJECT 1 PEN SUBCUTANE OUSLY ONCE A WEEK 02/19 completed Not Available Not Available Not Available Zepbound 5 mg/0.5 mL subcutaneou s pen injector INJECT 1 AUTO-INJE CTOR INTO THE SKIN ONCE WEEKLY 05/09 completed Not Available Not Available Not Available Zepbound 2.5 mg/0.5 mL subcutaneou s pen injector INJECT 1 SYRINGE SUBCUTANE OUSLY ONCE A WEEK 05/09 completed Not Available Not Available Not Available Zepbound 12.5 mg/0.5 mL subcutaneou s pen injector INJECT 1 SYRINGE SUBCUTANE OUSLY ONCE A WEEK 02/19 completed Not Available Not Available Not Available Zepbound 7.5 mg/0.5 mL subcutaneou s pen injector INJECT 7.5 MG (0.5 ML) UNDER THE SKIN INTO THE APPROPRIA TE AREA ONCE WEEKLY 05/09 completed Not Available Not Available Not Available Vitals Date Recorded Body height Body mass index (BMI) Body weight Oxygen saturation Oxygen saturation in Arterial blood by Pulse oximetry Heart rate Body temperature Systolic And Diastolic Provider Name and Address Organization Details Last Updated DateTime 149.86 cm 28.5 kg/m2 18427.2 4 g 98 % 98 % 82 /min 97.5 [degF] 102/72 mm[Hg] [facility] [employer]. 16:37:12 Social History Question Answer Notes LastModified by Organizat ion Details LastModified Time Tobacco Smoking Status Never Smoker [facility] istoryQ uestion : 'Tobacc o/Alcoh ol/Supp lements '; [facility] istoryR esponse : 'Never Smoker' ; Not Available [facility] 12/30/2021 22:58:45 Do You Have An Advance Directive? No Information not available 02/19/2025 Is Your Home Air Conditioned? Yes Information not available 02/19/2025 If You Are , What Was Your Level Of Alcohol Consumption Prior To ? None Information not available 08/20/2022 Are You Blind Or Do You Have Difficulty Seeing? No Information not available 08/20/2022 What Is Your Level Of Caffeine Consumption? Occasional Information not available 08/20/2022 Are You A Caregiver? No Information not available 08/20/2022 In The 14 Days Before Symptom Onset, Have You Had Close Contact With A Laboratory-conf irmed COVID-19 While That Case Was Ill? No Information not available 08/20/2022 In The 14 Days Before Symptom Onset, Have You Had Close Contact With A Person Who Is Under Investigation For COVID-19 While That Person Was Ill? No Information not available 08/20/2022 Have You Been To An Area Known To Be High Risk For COVID-19? No Information not available 08/20/2022 Are You Deaf Or Do You Have Serious Difficulty Hearing? No Information not available 08/20/2022 What Type Of Diet Are You Following? REGULAR Information not available 08/20/2022 What Is The Highest Grade Or Level Of School You Have Completed Or The Highest Degree You Have Received? 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 No Information not available 08/20/2022 Are There Any Guns Present In Your Home? Yes Information not available 02/19/2025 Which Of Your Hands Is Dominant? Right Information not available 02/19/2025 Do You Engage In Moderate/heavy Exercise (e.g. Brisk Walk, Jogging, Strength Training, Etc)? Yes Information not available 02/19/2025 How Many Times In The Past Year Have You Used An Illegal Drug Or Used A Prescription Medication For Nonmedical Reasons? 0 Information not available 08/20/2022 Where Do You Live? SingleLevelHouse Information not available 02/19/2025 Do You Have A Medical Power Of Ecommerce Manager? No Information not available 02/19/2025 What Was The Date Of Your Most Recent Tobacco Screening? 02/19/2025 Information not available 02/19/2025 Are There Any Occupational Health Risks Where You Work? Bodily Fluids Information not available 02/19/2025 Do You Have Any Pets? Yes Information not available 02/19/2025 What Is Your Relationship Status? Information not available 08/20/2022 Do You Wear A Seatbelt When Driving Or As A Passenger? Yes Information not available 02/19/2025 Do You Use Your Seat Belt Or Car Seat Routinely? Yes Information not available 08/20/2022 Are You Sexually Active? Yes Information not available 02/19/2025 Do You Have Smoke And Carbon Monoxide Detectors In Your Home? Yes Information not available 02/19/2025 Are You Passively Exposed To Smoke? No Information not available 08/20/2022 Are There Any Smokers In Your House? No Information not available 08/20/2022 Do You Participate In Social Media? Yes Information not available 08/20/2022 Has Tobacco Cessation Counseling Been Provided? No Information not available 08/20/2022 Have You Recently Traveled Abroad? No Information not available 08/20/2022 Do You Have Difficulty Walking Or Climbing Stairs? No Information not available 08/20/2022 Are You Currently In School? No Information not available 08/20/2022 What Contraceptive Method Was Reported At Start Of This Visit? Female Sterilization Information not available 02/19/2025 Do You Feel Safe In Your Home? Yes Information not available 02/19/2025 Do You Have Any Dietary Restrictions? No Information not available 08/20/2022 Sex: Female Functional Status Question Answer Note LastModified by Organizat ion Details LastModified Time Do you use any illicit or recreational drugs? No Information not available 08/20/2022 Do you feel safe in your relationship? Yes Information n ot available 02/19/2025 Do you or have you ever used any other forms of tobacco or nicotine? No Information not available 08/20/2022 What is your level of alcohol consumption? None Information not available 08/20/2022 Are you currently employed? Yes Information not available 08/20/2022 Do you have transportation difficulties? No Information not available 08/20/2022 Are you able to walk independently without assistance or assistive devices? [employer] Information not available 08/20/2022 Do you have difficulty doing errands alone? No [employer] Information not available 08/20/2022 Are you able to care for yourself independently? Yes [employer] Information not available 08/20/2022 Do you have difficulty dressing, bathing, grooming, or toileting? No [employer]cy[employer]ristiebowling Information not available 08/20/2022 Mental Status Question Answer Note LastModified by Organizat ion Details LastModified Time Do you feel stressed (tense, restless, nervous, or anxious, or unable to sleep at night)? [id number] Information not available 02/19/2025 Do you have difficulty concentrating, remembering or making decisions? No Scienion Information n ot available 08/20/2022 Family History Relationship Description Onset Age of this Age Resolved Age Notes LastModified by Organization Details LastModified Time Unspecified Relation Family history of breast cancer Relati ve: ''; [email or web address] Not available 12/30/2021 23:01:50 Unspecified Relation Family history of malignant neoplasm Relati ve: ''; [email or web address] Not available 12/30/2021 23:01:51 Unspecified Relation Family history of neurological disorder Relati ve: ''; [email or web address] Not available 12/30/2021 23:01:51 Notes:*Procedure Description : Documented family medical history in mother*Relative: Mother Medical History Condition Response Coronary Artery Disease N Other N Gout N Blood Diseases N Kidney Stones N Hyperthyroidism N Blood Transfusion N Breast Cancer N Emergency room visit since last appointm ent. N Lung Disease N COPD N Depression N Hypothyroidism N Dermatologic Disorders N Defects or Inherited Disease N Developmental or Behavioral Disorders N Breast Problem N Difficulty Swallowing N Anesthesia Complications N History of STI N Anxiety Disorder N Meniere's disease N Autoimmune disease N Muscle, Joint, or Bone Problems N Vision or Eye Problems N Arthritis N Infertility N Polyps N Mental Disorder N Congenital Anomalies N Acid Reflux (GERD) N Cancer N Stroke N Neurologic/Epilepsy N Endometriosis N Bladder or Kidney Problems N High Cholesterol N Liver Disease N Organ Transplant N Psychiatric/Mental Health Condition N Dialysis N Headaches N Fibromyalgia N Schizophrenia N Kidney Disease N Allergies/Hayfever N Heart Problems N Ear or Hearing Problems N Hospitalizations N Learning Disorder N Artificial Joints N Thyroid Problems Y GI Problems N Acne N ADD/ADHD Y Eating Disorder N Anemia N Constipation N Mental Illness N Diabetes N Ovarian Cancer N Bedwetting N Hepatitis/Liver Disease N Tuberculosis N Eczema N Abuse/Domestic Violence N Diverticulitis N Asthma Y Trauma/Violence N Substance Abuse N Reflux/GERD N Depression/ depression N Hepatitis N Heart Disease N Pulmonary Embolism N Tourette Syndrome N Chronic Ear Infections N Pre-Eclampsia N Hypertension N Chicken Pox N Autism Spectrum Disorder (ASD) N Osteoporosis N Thrombophilias N Gynecological History Statement/Question Response Flow Moderate Date of LMP 02/09/2025 Menses Monthly Y Date of Last Pap Smear Current Control Method Tubal Ligat ion Most Recent Mammogram LMP Approximate Obstetrics History GPAL:G 0 P 0 0 0 0 Immunizations Vaccine Type Date Status Note Provider Nam e and Address Organization Details Recorded Time Influenza, split virus, quadrivalent, PF 03/05/2020 completed Not Available Count includes the [facility] 2 23:41:52 COVID-19, mRNA, LNP-S, PF, 100 mcg/0.5mL dose or 50 mcg/0.25mL dose 05/18/2020 completed Not Available Count includes the [facility] 5 16:19:33 COVID-19, mRNA, LNP-S, PF, 100 mcg/0.5mL dose or 50 mcg/0.25mL dose 06/15/2020 completed Not Available Count includes the [facility] 5 16:19:33 Influenza, split virus, quadrivalent, PF 04/25/2022 completed Not Available Count includes the [facility] 5 16:19:33 Past Encounters Encounter ID Performer Location Encounter Start Date Encounter Closed Date Diagnosis/Indication Diagnosis SNOMED-CT Code Diagnosis ICD10 Code Diagnosis IMO Codes Diagnosis Note [id number] [facility] [address] [place] [address] 02/19/2025 16:05:02 02/19/2025 17:20:02 Counseling 515715210 Z71.9 Menometrorrhagia 8612531 08 N92.1 52298 Family his tory of Psoriasis 942391855 Z84.[address] imulating hormone level above reference range 297992522 R79.89 320343 Edema of l ower extremity 150362166 R60.0 20632 Reduced libido 8167453 R 68.82 34509445 Serum ferr itin above reference range 484413467 R79.89 93790126 Polycystic ovary syndrome 365680961 E28.2 590226 HIV screening 027642288 Z11.4 55602563 Viral scre ening status 194256113 Z11.59 230561 Health Concerns Section Related Observation LastModified by Organization Detai ls LastModified Time None Recorded Concern Status LastModified by Organization Details LastModified Time None Recorded Payers Encounter Date Sequence Insurance Name Policy Number Policy Goldstein Covered Member ID Goldstein Member ID Guarantor Name 02/19/2025 1 [employer] [id number] Oliva H Vanegas [id number] Oliva H Vanegas Notes Date Note Type Note Provider Name and Address Organization Details Recorded Time 02/19/2025 text/html ROS as noted in the HPI Patient presents to establish careHistory of ADHD. Was on Vyvanse in the past. Didn't like the crash at the end of the day, but did feel like it helped with her ADHD symptomsRecently started on Synthroid after TSH elevated at [employer] COUNSEL[employer] officeHas joint pain, fatigue. Has lost weight, eats better, exercises daily and still has no energy and feels achy and sore all the time.Has no sex drive and SSRI made it worseHas swelling in her lower extremities [place] [address] [place] [address], [place], [address], [facility] [employer] 02/22/2025 16:12:12 OBGyn Episode No OBEpisode recorded.
--- OUTSIDE RECORDS SUMMARY | 2025-03-08 07:38 | XMS_ITS ---
Author Organization Unknown ENCOUNTERS Encounter Performer Location Date Diagnosis Diagnosis Status Emergency [facility] [address] [place] [address] [id number] LILI Pre Admit [facility] [address] [place] [address] [id number] *Note: Encounters from your own facility or health system may be excluded. Allergies, Adverse Reactions, Alerts Allergen Type Severity Identification Date hydrocodone drug allergy 20240122 acetaminophen drug allergy 20240122 Medications Name Date Quantity Days Supplied [facility] Number
--- OUTSIDE RECORDS SUMMARY | 2025-03-08 07:38 | XMS_ITS | Patient Health Record ---
Author Organization [facility] Address [address] [place] [address] Care Team Providers Care Missile Mechanic Name Role Phone Elvira Tomlinson Unavailable [phone] Sultana Damian Unavailable [phone] Allergies Allergen (clinical drug ingredient) Drug/Non Drug Allergy documented on EMR Reaction Allergy Type Onset Date Status Lortab Unknown Drug Allergy Active Results Component Value Reference Range Flag Notes CBC (NO DIFF) Reviewed date:11/09/2024 11:47:47 AM Interpretation:Normal Performing Lab: Notes/Report: WBC, CORRECTED 9.09 3.40-10.80 10*3/mm3 ERYTHROCYTES IN BLOOD BY AUTOMATED COUNT 4.10 3.77-5.28 10*6/mm3 HEMOGLOBIN (G/DL) IN BLOOD 12.0 12.0-15.9 g/dL HEMATOCRIT (%) BY AUTOMATED COUNT 35.5 34.0-46.6 % RBC MCV (FL) BY AUTOMATED COUNT 86.6 79.0-97.0 fL RBC MCH (PG) BY AUTOMATED COUNT 29.3 26.6-33.0 pg RBC MCHC (G/DL) BY AUTOMATED COUNT 33.8 31.5-35.7 g/dL RBC RDW (%) BY AUTOMATED COUNT 12.6 12.3-15.4 % RDW-SD 40.0 37.0-54.0 fl MEAN PLATELET VOLUME (FL) BY AUTOMATED COUNT 10.4 6.0-12.0 fL PLATELETS BY AUTOMATED COUNT 256 140-450 10*3/mm3 Lab specimens received at a [facility].?See result details for the performing location information. COMPREHENSIVE METABOLIC PANE L Reviewed date:11/09/2024 08:43:57 AM Interpretation:Normal Performing Lab: Notes/Report: GFR Categories in Chronic Kidney Disease (CKD) GFR Category GFR (mL/min/1.73) Interpretation G1 90 or greater Normal or high (1) G2 60-89 Mild decrease (1) G3a 45-59 Mild to moderate decrease G3b 30-44 Moderate to severe decrease G4 15-29 Severe decrease G5 14 or less Kidney failure (1)In the absence of evidence of kidney disease, neither GFR category G1 or G2 fulfill the criteria for CKD. eGFR calculation 2020 CKD-EPI creatinine equation, which does not include race as a factor GLUCOSE RANDOM 79 65-99 mg/dL UREA NITROGEN MG/DL IN SER/PLAS 19.0 6.0-20.0 mg/dL CREATININE MG/DL IN SER/PLAS 0.79 0.57-1.00 mg/dL SODIUM MMOL/L IN SER/PLAS 137 136-145 mmol/L POTASSIUM MMOL/L IN SER/PLAS 4.4 3.5-5.2 mmol/L CHLORIDE 103 98-107 mmol/L CO2 23.1 22.0-29.0 mmol/L CALCIUM MG/DL IN SER/PLAS 9.4 8.6-10.5 mg/dL TOTAL PROTEIN 7.2 6.0-8.5 g/dL ALBUMIN G/DL IN SER/PLAS 4.3 3.5-5.2 g/dL ALT (SGPT) 18 1-33 U/L AST (SGOT) 21 1-32 U/L ALKALINE PHOSPHATASE 31 39-117 U/L L BILIRUBIN TOTAL 0.4 0.0-1.2 mg/dL GLOBULIN 2.9 A/G RATIO 1.5 BUN / CREAT RATIO 24.1 7.0-25.0 ANION GAP 10.9 5.0-15.0 mmol/L EGFR CKD-EPI 99.6 >60.0 mL/min/1.73 Lab s pecimens received at a [facility].?See result details for the performing location information. TSH Reviewed date:11/09/2024 08:43:57 AM Interpretation:Normal Performing Lab: Notes/Report: THYROID STIMULATING HORMONE (TSH) UIU/ML 3.800 0.270-4.20 uIU/mL Lab specimens received at a [facility].?See result details for the performing location information. VITAMIN D 25 HYDROXY Reviewed date:11/09/2024 08:42:31 AM Interpretation:69.8 Performing Lab: Notes/Report: Reference Range for Total Vitamin D 25(OH) Deficiency <20.0 ng/mL Insufficiency 21-29 ng/mL Sufficiency 30-100 ng/mL Toxicity >100 ng/ml VITAMIN D 25-HYDROXY 69.8 30.0-100.0 ng/ml Lab specimens received at a [facility].?See result details for the performing location information. T4, FREE Reviewed date:11/09/2024 08:43:57 AM Interpretation:Normal Performing Lab: Notes/Report: FREE T4 1.41 0.92-1.68 ng/dL Lab speci mens received at a [facility].?See result details for the performing location information. T3, FREE Reviewed date:11/09/2024 08:43:57 AM Interpretation:Normal Performing Lab: Notes/Report: T3 FREE 2.67 2.00-4.40 pg/mL Lab speci mens received at a [facility].?See result details for the performing location information. PROGESTERONE Reviewed date:01/03/2025 08:53:04 AM Interpretation:Normal Performing Lab: Notes/Report: Progesterone Reference Ranges: Adult Males: 0.0-0.5 ng/mL Adult Femles: Follicular phase 0.1-0.9 ng/mL Ovulation phase 0.1-12.0 ng/mL Luteal phase 1.8-23.9 ng/mL Postmenopausal 0.0-0.1 ng/mL : First Trimester 11.0-44.3 ng/mL Second Trimester 25.4-83.3 ng/mL Third Trimester 58.7-214.0 ng/mL Results may be falsely increased if patient taking Biotin. PROGESTERONE LEVEL 0.66 Lab sp ecimens received at a [facility].?See result details for the performing location information. TESTOSTERONE, FREE, TOTAL Reviewed date:01/11/2025 09:11:50 AM Interpretation:13/0.2 Performing Lab: Notes/Report: Performed at: [address] [id number] Humanities Division Chair: Anam Harris PhD, Phone: [phone] Performed at: [facility] [address] [place], [place] [id number] Humanities Division Chair: Jv Blanco MD, Phone: [phone] TESTOSTERONE, TOTAL (REF) 13 8-60 ng/dL TESTOSTERONE FREE <0.2 0.0-4.2 pg/mL Lab specimens received at a [facility].?See result details for the performing location information. ESTRADIOL Reviewed date:01/03/2025 08:53:04 AM Interpretation:Normal Performing Lab: Notes/Report: Estradiol Reference Ranges: Adult Males: 7.6-42.6 pg/mL Adult Femles: Follicular phase 12.5-166.0 pg/mL Ovulation phase 85.8-498.0 pg/mL Luteal phase 43.8-211.0 pg/mL Postmenopausal <6.0-54.7 pg/mL : First Trimester 215.0- >4300.0 pg/mL Child (1-10 years): Male <6.0-20.0 pg/mL Female 6.0-27.0 pg/mL Results may be falsely increased if patient taking Biotin. ESTRADIOL LEVEL 677.0 Lab speci mens received at a [facility].?See result details for the performing location information. FOLLICLE STIMULATING HORMONE Reviewed date:01/03/2025 08:53:04 AM Interpretation:Normal Performing Lab: Notes/Report: FSH Reference Ranges: Adult Males: 1.5-12.4 mIU/mL Adult Females: Folicular Phase ?3.5-12.5 mIU/ml Ovulation Phase ?4.7-21.5 mIU/ml Lutal Phase ? ? ?1.7-7.7 mIU/ml Postmenopausal ? 25.8-134.8 mIU/ml FOLLICLE STIMULATING HORMONE 3.76 Lab specimens received at a [facility].?See result details for the performing location information. TSH Reviewed date:01/03/2025 01:43:35 PM Interpretation:4.6 Performing Lab: Notes/Report: THYROID STIMULATING HORMONE (TSH) UIU/ML 4.600 0.270-4.20 uIU/mL H Lab specimens received at a [facility].?See result details for the performing location information. VITAMIN D 25 HYDROXY Reviewed date:01/03/2025 08:53:04 AM Interpretation:Normal Performing Lab: Notes/Report: Reference Range for Total Vitamin D 25(OH) Deficiency <20.0 ng/mL Insufficiency 21-29 ng/mL Sufficiency 30-100 ng/mL Toxicity >100 ng/ml VITAMIN D 25-HYDROXY 82.1 30.0-100.0 ng/ml Lab specimens received at a [facility].?See result details for the performing location information. T4, FREE Reviewed date:01/03/2025 08:53:04 AM Interpretation:Normal Performing Lab: Notes/Report: FREE T4 1.32 0.92-1.68 ng/dL Lab speci mens received at a [facility].?See result details for the performing location information. Reason For Referral Reason abnromal tsh Diagnosis 1 Abnormal TSH (R94.6) Referral Organization [facility] Referring Provider First Name Sultana Referring Provider Last Name Damian Referring Provider Speciality OB - Gynec ology General Notes Mary Jane Hearn 01/24 09:15:07 AM EDT >per endo called pt left vm, as of 01.24.25 pt has not called backt os chedule, will note if appt info becomes available Referral Priority Routine Medications Medication SIG (Take, Route, Frequency, Duration) Notes Start Date End Date Status Fluticasone Propionate 50 MCG/ACT Suspension Nasal; Duration: 90 Ac tive Claritin 10 MG Tablet 1 tablet Orally On ce a day; Duration: 30 day(s) 09/23/2021 Active Iron Active Vitamin C Active Levothyroxine Sodium 25 MCG Tablet TAKE 1 TABLET BY MOUTH ONCE DAILY IN THE MORNING ON AN EMPTY STOMACH; Duration: 30 Active 27-1 MG Tablet 1 tablet Orally Once a day; Duration: 30 day(s) 09/23/2021 Active Omeprazole 20 MG Capsule Delayed Release Oral; Duration: 90 Active Sertraline HCl 25 MG Tablet Take 1 table t by mouth once daily; Duration: 30 Active Zepbound Active Social History Tobacco Use: Social History Observation [...] Notes Tobacco Use/Smoking Are you a nonsmoker Problems Problem Type SNOMED Code ICD Code Onset Dates Problem Status W/U Status Risk Notes Problem Anxiety (19367265) Anxiety (F41.9) Active confirmed Problem Tachycardia (6643837) Tachycardia (R00.0) Active confirmed Problem Irregular periods (06395837) Irregular bleeding (N92.6) Active confirmed Vital Signs Blood pressure diastolic 70 mm Hg 01/02/2025 Height 60 in 01/02/2025 Blood pressure systolic 108 mm Hg 01/02/2025 Weight 139.0 lbs 01/02/2025 BMI 27.14 kg/m2 01/02/2025 Encounters Encounter Location Date Provider Diagnosis [facility] [address] [facility] [address] [place] [address] 01/03/2025 [facility] [address] [facility] [address] [place] [address] 01/08/2025 [facility] [address] [facility] [address] [place] [address] 01/09/2025 [facility] [address] [facility] [address] [place] [address] 01/11/2025 [facility] [address] [place] [address] 11/08/2024 [facility] Anxiety F41.9 and Irregular bleeding N92.6 [facility] [address] [place] [address] 01/02/2025 [facility] Anxiety F41.9 and Decreased libido R68.82 Assessments Encounter Date Diagnosis (ICD Code) Assessment Notes Treatment Notes Treatment Clinical Notes Section Notes 11/08/2024 Anxiety (ICD-10 - F41.9) Discussed increased intrusive thoughts, new dx for her daughter, responsibilites as a parent. PHQ/MATILDE elevated today 01/12 respectively. Patient is open to started med/therapy combination. She has not tried meds in the future and does not know what could work for her. Will start on a low dose Zoloft and f/u in 3-4 weeks. Risks vs benefits discussed. 01/02/2025 Anxiety (ICD-10 - F41.9) continue sertraline at current dose 01/02/2025 Decreased libido (ICD-10 - R68.82) check testosterone today as well as other hormone labs. patient interested in testosterone supplementatin. 11/08/2024 Irregular bleeding (ICD-10 - N92.6) Likely related to anxiety, but will check labs. Advised to continue tracking cycles. When she is stable on anxiety meds we will focus on cycle if she is not already more regular. Plan Of Treatment Next Appt Details Provider Name:Sultana Damian, 03/15/2025 02:45:00 PM, [address] [facility] [address], [place], [address], Insurance Providers Payer Name Payer Address Payer Phone Subscriber Number Group Number Insured Name Patient Relationship to Insured Coverage Start Date Coverage End Date Toni TIMO [address] [place] [address] [id number] Oliva Vanegas Self - patient is the insured 2 Medical (General) History Medical History History ICD Code Anemia Anxiety Asthma Depression Chronic hypertension in O10.91 9 Chronic hypertension in Surgical History Surgery Date(Month/Year) Tonsillectomy Laparoscope Oral Surgery with sterilization 10/14/2022 Hospitalization History Reason Date(Month/Year) 10/14/22 05-05-2017
--- OUTSIDE RECORDS SUMMARY | 2025-03-08 07:38 | XMS_ITS | Data Portability ---
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 Results of dipstick were positive for UTI Advised to drink clear fluids, Tylenol for pain and take prescribed medications as instructed. Patient encouraged to follow up within 1 week if not improving. [email or web address] Not available 08/30/2024 14:03:57 Plan of Treatment Reminders Order Date Submit Date Provider Last Modified By Organization Details Last Modified Time Details Appointments BH NEW INTAKE 60 2024 02:00P Carlos Alberto Barney DNP Not available Not available Not available Lab T3, free, serum or plasma 2024 025 [facility] [place], [address], 03/01/2025 20:07:58 T4, free, serum 2024 025 [facility] [place], [address], 03/01/2025 20:07:58 TSH, serum or plasma 2024 025 [facility] [place], [address], 03/01/2025 20:07:53 thyroid peroxidas e (tpo) Ab, serum 2024 [facility] [address] [place], [address], 03/01/2025 20:07:57 tsi (thyroid- stimulati ng immunoglo bulin), serum 2024 025 [facility] ([place]), [address] [place], [address], 03/01/2025 20:07:56 dhea, serum 2024 [facility] ([place] [address] [place], [address], 03/01/2025 20:07:54 insulin, serum 2024 [facility] ([place] [address] [place], [address], 03/01/2025 20:07:57 prolactin , serum 2024 [facility] ([place] [address] [place], [address], 03/01/2025 20:07:55 anti-andrew erian hormone (amh), serum 2024 [facility] ([place] [address] [place], [address], 03/01/2025 20:07:53 iron + TIBC + ferritin, serum 2024 025 [facility] ([place] [address] [place], [address], 03/01/2025 20:07:52 HFE gene mutation analysis, blood or tissue 2024 025 [facility]), [address] [place], [address], 03/01/2025 20:07:54 RODNEY (antinucl ear antibodie s) screen, serum 2024 025 [facility]), [address] [place] [address], [address], 03/01/2025 20:07:56 erythrocy te sedimenta tion rate by westergre n method 2024 025 [facility]), [address] [place] [address], [address], 03/01/2025 20:07:56 C reactive protein, QN, serum or plasma 2024 025 [facility]), [address] [place] [address], [address], 03/01/2025 20:07:57 rf (rheumato id factor), serum 2024 025 [facility]), [address] [place] [address], [address], 03/01/2025 20:07:55 Hepatitis C IgG Ab, qual, serum 2024 025 [facility]), [address] [place] [address], [address], 03/01/2025 20:07:53 HIV 1 + 2, meaningfu l use set 2024 025 [facility]), [address] [place] [address], [address], 03/01/2025 20:07:55 urinalysi s, dipstick [address], [address] [place] [address], [address], 08/30/2024 14:09:46 rapid strep group A, throat [address] [facility], [address] [place], [address], 05/09/2024 10:54:59 rapid strep group A, throat 2023 024 [email or web address] [facility], [address] [place], [address], 06/21/2023 14:32:11 Referral None recorded. Procedures None recorded. Surgeries None recorded. Imaging None recorded. Medication Orders Macrobid 100 mg capsule 2024 025 [facility], [address], [address], 02/19/2025 16:29:13 Pyridium 200 mg tablet 2024 025 [facility], [address], [address], 02/19/2025 16:29:21 cefdinir 300 mg capsule 2024 025 [facility], [address], [address], 08/30/2024 12:34:09 famciclov ir 500 mg tablet 2023 024 [id number] [address] [place], [address], 02/19/2025 16:27:54 Augmentin 875 mg-125 mg tablet 2023 024 [facility], [address], [address], 01/10/2024 09:37:02 Patient TargetsNo targets recorded. Patient Instructions Encounter Date Encounter Id Patient Instructions Last Modified By Organization Details Last Modified Time 06/21/2023 [id number] exercise [email or web address] Not available 05/28 14:32:09 eating healthy foods: care instructions [email or web address] Not available 06/21/2023 14:32:09 01/10/2024 [id number] eating healthy foods: care instructions [email or web address] Not available 01/10/2024 09:58:28 walking for exercise: care instructions [email or web address] Not available 01/10/2024 09:58:27 05/09/2024 [id number] eating healthy foods: care instructions [email or web address] Not available 05/09/2024 10:54:59 walking for exercise: care instructions [email or web address] Not available 05/09/2024 10:54:59 Medications as prescribed. Rest, increase fluids, Tylenol for fever or headache, humidifier. F/u in 5-7 days if not improved. [email or web address] Not available 05/09/2024 10:54:53 Plan of care discussed with patient/guardian who voiced understanding. [email or web address] Not available 05/09/2024 10:54:58 08/30/2024 [id number] Learning About Being Physically Active [email or web address] Not available 08/30/2024 14:09:46 learning about dietary guidelines [email or web address] Not available 08/30/2024 14:09:46 Medications as prescribed. Increase fluids. Tylenol for fever or pain. Urinate after intercourse. F/u in 3 days if not improved. [email or web address] Not available 08/30/2024 14:08:32 Plan of care discussed with patient/guardian who voiced understanding. [email or web address] Not available 08/30/2024 14:09:57 02/19/2025 [id number] leg and ankle edema: care instructions Not available 02/19/2025 17:45:04 Decreased Female Libido: Care Instructions [email or web address] Not available 02/19/2025 17:45:04 mental health assessment* [email or web address] Not available 02/20/2025 15:37:06 MHI Packet Adult [email or web address] Not available 02/19/2025 16:58:59 HIV testing: car e instructions Not available 02/20/2025 10:18:02 Reason for Referral None Reported. Results Created Date Observation Date Name Description Value Unit Range Abnormal Flag Note LastModifiedBy Organization Detail LastModifiedTime 06/16/19 24 06/16/2023 rapid strep group A, throa t Strep negati ve Not Available [facility] [address], [address], 06/16/2023 10:07:44 06/21/19 24 06/21/2023 rapid strep group A, throa t Strep positi ve Not Available [facility] on [address], [address], 06/21/2023 14:24:04 05/09/19 25 05/09/2024 rapid strep group A, throa t Strep negati ve Not Available [facility] [place] on [address], [address], 05/09/2024 10:04:21 08/31/19 25 08/30/2024 urina lysis , dipst ick Leukocytes Negati ve Not Available [facility] [place] [facility] [address], [address], 08/30/2024 12:34:17 08/31/19 25 08/30/2024 urina lysis , dipst ick Nitrite negati ve Not Available [facility] [place] [facility] [address], [address], 08/30/2024 12:34:17 08/31/19 25 08/30/2024 urina lysis , dipst ick Urobilinogen .2 Not Available [facility] [place] [address], [address], 08/30/2024 12:34:17 08/31/19 25 08/30/2024 urina lysis , dipst ick Protein Negati ve Not Available [facility] [place] [address], [address], 08/30/2024 12:34:17 08/31/19 25 08/30/2024 urina lysis , dipst ick pH 5.0 Not Available [facility] [place] [address], [address], 08/30/2024 12:34:17 08/31/19 25 08/30/2024 urina lysis , dipst ick Blood Small Not Available [facility] [place] [address], [address], 08/30/2024 12:34:17 08/31/19 25 08/30/2024 urina lysis , dipst ick Specific Shepherd 1.010 Not Available [facility] [place] [address], [address], 08/30/2024 12:34:17 08/31/1908/30/2024 urina lysis , dipst ick Ketone Negati ve Not Available [facility] [place] [address], [address], 08/30/2024 12:34:17 08/31/19 25 08/30/2024 urina lysis , dipst ick Bilirubin Negati ve Not Available [facility] [place] [address], [address], 08/30/2024 12:34:17 08/31/1908/30/2024 urina lysis , dipst ick Glucose Negati ve Not Available [facility] [place] [facility] [address], [address], 08/30/2024 12:34:17 08/31/19 25 08/30/2024 urina lysis , dipst ick Appearance Clear Not Available [facility] [place] [address], [address], 08/30/2024 12:34:17 08/31/1908/30/2024 urina lysis , dipst ick Color Pale Yellow [place] [address] [place] [address], [place], [address], 08/30/2024 12:34:17 02/21/2002/21/2025 FE+TI BC+FE R iron bind.cap.(TI BC) 262 ug/dL 250-45 0 normal Not Available [facility] ([facility]) [address] [place], [address], 03/01/2025 20:07:52 02/21/20 25 02/21/2025 FE+TI BC+FE R UIBC 171 ug/dL 131-42 5 normal Not Available [facility] ([facility]) [address] [place], [address], 03/01/2025 20:07:52 02/21/20 25 02/21/2025 FE+TI BC+FE R iron 91 ug/dL 27-159 normal Not Available [facility] ([facility]) [address] [place], [address], 03/01/2025 20:07:52 02/21/20 25 02/21/2025 FE+TI BC+FE R iron saturation 35 % 15-55 normal Not Available [facility] ([facility]) [address] [place], [address], 03/01/2025 20:07:52 02/21/2002/21/2025 FE+TI BC+FE R ferritin 329 NG/mL 15-150 above high normal Not Available [facility] ([facility]) [address] [place], [address], 03/01/2025 20:07:52 02/21/20 25 02/21/2025 HCV ANTIB JOAN MONSERRATA DE(PC R/GEN O) HCV Ab Non Reacti ve non reacti ve Not Available [facility] ([facility]) [address] [place], [address], 03/01/2025 20:07:53 02/21/2002/21/2025 HCV ANTIB JOAN CASCA DE(PC R/GEN O) interpretati on: Commen t Not infec bertram with HCV unles s early or acute infec tion is suspe cted (whic h may be delay ed in an immun ocomp romis ed indiv idual ), or other evide nce exist s to indic ate HCV infec tion. Not Available [facility] ([facility]) [address], [place], [address], 03/01/2025 20:07:53 02/21/2002/22/2025 ANTI- MULLE DANO HORMO NE (AMH) anti-mulleri [...] 46: 1037- 1038. This test was devel oped and its [...] accor ding to Nyla sandra et al. Ferti lity and Steri lity. 2010: 94:28 24-28 27. The [facility] AMH test metho d corre lates [...] AMH along with other tumor marke rs. Wayne bertram AMH is not speci fic for cris flannery , and the assay shoul d not be used exclu sivel y to diagn ose or exclu de an AMH-s ecret ing ovari an tumor . Not Available [facility] [address] [place], [address], 03/01/2025 20:07:53 02/21/20 25 02/26/2025 THYRO ID STIMU LATIN G HORMO NE TSH-icma 4.1 uu/mL Refer ence Range : Non-P regna nt Adult 0.450 -4.50 0 Pregn maxnie First Trime ster 0.100 -4.00 0 Secon d Trime ster 0.200 -4.00 0 Third Trime ster 0.300 -4.50 0 Not Available [facility] [address] [place], [address], 03/01/2025 20:07:53 02/21/20 25 02/26/2025 HERED .HEMO CHROM ATOSI S, DNA hereditary [...] sympt oms. Clini courtney sympt oms typic beniy allanea r ernstwe en 40 to 60 years in males [...] ders to discu ss resul ts at 1-130 -345- GENE (0223 ). Test Detai ls: Three varia nts ramos zed: c.845 G>A (p.Cy s282T yr), commo nly refer red to as C282Y c.187 C>G (p.Hi s63As p), commo nly refer red to as H63D c.193 A>T (p.Se r65Cy s), commo nly refer red to as S65C Metho ds/Li mitat ions: DNA Ramos sis of the HFE gene ([id number]) was perfo rmed by PCR ampli [...] e zackary cteri stics deter mined by [facility]. It has not been clear ed or appro myra by the Food and Drug Admin istra tion. Refer ences : Julio BR, Cayetano PC, Frankyl ey K[place], Darwin camarillo LW, Josemanuel camarillo ; Ameri can Assoc iatio n for the Study of Liver Disea ses. Diagn osis and manag ement of hemoc hroma tosis : 2010 pract ice guide line by the Ameri can Assoc iatio n for the Study of Liver Disea ses. Hepat ology . 2010; 4(1): 328-4 3. doi: 10.10 02/herb p.243 30. PMID: 22500 290; PMCID : PMC31 57209 . Markel G, Allie ot P, Nila willis DW, Jb r H, Kane oropeza O, Lucia n S, Almariely o I, Dandre Holman EMQN best pract ice guide lines for the molec ular chinmay ic diagn osis of hered itary hemoc hroma tosis (HH). Eur J Hum Chinmay . 2016 Jul;2 4(4): 479-9 5. doi: 10.10 38/ej hg.20 15.12 8. Epub 2014Oct 31. PMID: 35866 218; PMCID : PMC49 00199 . Not Available [facility] ([facility]) [address] [place], [address], 03/01/2025 20:07:54 02/21/2002/26/2025 HERED .HEMO CHROM ATOSI S, DNA reviewed by: Kingston Aguirre ical [place] [facility] perfo rmed at [facility] [place] [facility] perfo rmed by: Rain Chavez , PhD, [facility] YJTGD 9, [facility], [address] [place] [address] Not Available [facility] ([facility]) [address] [place], [address], 03/01/2025 20:07:54 02/21/2003/01/2025 DHEA, SERUM dehydroepian drosterone (DHEA) 123 NG/dL 70 Not Available [facility] ([facility]) [address] [place], [address], 03/01/2025 20:07:54 02/21/20 25 02/21/2025 PROLA CTIN prolactin 16.8 NG/mL 4.8-33 .4 normal Not Available [facility] ([facility]) [address] [place], [address], 03/01/2025 20:07:55 02/21/20 25 02/21/2025 RHEUM ATOID FACTO R (RF) rheumatoid factor (rf) 10.0 IU/mL <14.0 normal Not Available [facility]) [address] [place], [address], 03/01/2025 20:07:55 02/21/2002/21/2025 HIV AB/P2 4 AG WITH REFLE X HIV Ab/P24 Ag screen Non Reacti ve non reacti ve HIV-1 /HIV- 2 antib odies and HIV-1 p24 antig en were NOT detec bertram. There is no labor atory evide nce of HIV infec tion. HIV Negat je Not Available [facility] ([facility]) [address] [place], [address], 03/01/2025 20:07:55 02/21/2002/24/2025 THYRO ID STIM IMMUN OGLOB ULIN thyroid stim immunoglobul in <0.10 IU/L 0.00-0 .55 Not Available [facility] ([facility]) [address] [place], [address], 03/01/2025 20:07:56 02/21/20 25 02/21/2025 RODNEY W/REF FATEMEH IF POSIT JE RODENY direct Negati ve negati ve Not Available [facility] ([facility]) [address] [place], [address], 03/01/2025 20:07:56 02/21/20 25 02/21/2025 ERYTH ROCYT E SEDIM ENTAT ION RATE erythrocyte sedimentatio n rate 5 mm/HR 0-32 normal Not Available [facility] ([facility]) [address] [place], [address], 03/01/2025 20:07:56 02/21/20 25 02/21/2025 INSUL IN insulin 7.4 uIU/m L 2.6-24 .9 normal Not Available [facility] ([facility]) [address] [place], [address], 03/01/2025 20:07:57 02/21/20 25 02/21/2025 C-RYAN CTIVE PROTE IN, QUANT C-reactive protein, quant 5 mg/L 0-10 normal Not Available [facility] ([facility]) [address] [place], [address], 03/01/2025 20:07:57 02/21/2002/21/2025 THYRO ID PEROX IDASE (TPO) AB thyroid peroxidase (tpo) Ab 18 IU/mL 0-34 normal Not Available [facility] ([facility]) [address] [place], [address], 03/01/2025 20:07:57 02/21/2002/21/2025 TRIIO DOTHY CLAIRE E (T3), FREE triiodothyro nine (T3), free 2.6 pg/mL 2.0-4. 4 normal Not Available [facility] ([facility]) [address] [facility], [place], [address], 03/01/2025 20:07:58 02/21/2002/21/2025 T4,FR EE(DI RECT) T4,free(dire ct) 1.51 NG/dL 0.82-1 .77 normal Not Available [facility] ([facility]) [address] [place], [address], 03/01/2025 20:07:58 Result Notes None recorded. Problems Name Problem SNOMED Code Status Onset Date Resolution Date Notes Provider Name and Address Organization Details Recorded Time Influenz a vaccine needed 26109585111 06 Completed 201905/09/2024 Problem Code: Z23; Problem Code Type: ICD-10; Marily Diaz PA-C [address] [place], [address], [employer] 5 10:27:52 Dysuria 43163814 Completed 202005/09/2024 Problem Code: R30.0; Problem Code Type: ICD-10; Marily Diaz PA-C [address] [place], [address], [employer] 5 10:27:12 Acute respirat ory infectio ns 049067701 Completed 202005/09/2024 Problem Code: J22; Problem Code Type: ICD-10; Marily Diaz PA-C [address] [place] [address], [address], [employer] 10:27:02 Bronchit is 45408897 Completed 202005/09/2024 Problem Code: J40; Problem Code Type: ICD-10; Marily Diaz PA-C [address] [place] [address], [address], [employer] 10:27:07 Acute cystitis 18079676 Completed 202105/09/2024 Problem Code: N30.00; Problem Code Type: ICD-10; Marily Diaz PA-C [address] [place] [address], [address], [employer] 10:26:56 Menometr orrhagia 340246770 Active 2024 [place] [place] [address] [place] [address], [address], [employer] 17:39:48 Thyroid stimulat ing hormone level above referenc e range 423853168 Active 2024 [place] [place] [address] [place] [address], [address], [employer] 17:41:04 Edema of lower extremit y 777697900 Active 2024 [place] [place] [address] [place] [address], [address], [employer] 17:41:08 Reduced libido 9507600 Active 2024 [place] [place] [address] [place] [address], [address], [employer] 17:41:13 Serum ferritin above referenc e range 147735618 Active 2024 [place] [place] [address] [place] [address], [address], [employer] 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 17:43:26 Anxiety 14616111 Active 2024 [place] [place] [address] [place] [address], [address], [employer] 09:20:56 Primary hypothyr oidism 76516228 Active 2024 [place] [place] [address] [place] [address], [address], [employer] 09:21:13 Protein level - finding 557978754 Active 2024 [place] [place] [address] [place] [address], [address], [employer] 15:54:05 Problem Notes None recorded. Procedures Surgical History Date Name Laterality Status Provider Name and Address Organization Details Recorded Time 01/04/20 21 section completed Not Available [facility] 09/2021 22:56:12 01/04/20 21 tonsillectomy and adenoidectomy completed Not Available [facility] 12/30/2021 22:56:13 [facility] [employer] 02/19/2025 16:32:20 Imaging Results None recorded. Procedure Notes None recorded. Medical Equipment None Reported. Allergies Allergen ID Allergen Name Allergen Category Reaction Reaction Severity Criticality Documentation Date Start Date Code Code System Note Provider Name and Address Organization Details Recorded Time 73234 acetamino phen / hydrocodo ne medicatio n Not available Not available Not available 12/30/2021 00891 2 RxNorm Not Available [facility] 22:56:31 Medications Name Sig Start Date [...] Not Available No t Available amoxicillin 875 mg-potchance m clavulanate 125 mg tablet TAKE 1 [...] active Not Available Not Available Not Avai yvon Mounjaro 12.5 mg/0.5 mL subcutaneou s pen [...] Available Vitals Date Recorded Body height Body temperature Oxygen saturation Oxygen saturation in Arterial blood by Pulse oximetry Heart rate Body mass index (BMI) Body weight Provider Name and Address Organization Details Last Updated DateTime 5 152.4 cm 97.6 [degF] 100 % 100 % 92 /min 33.6 kg/m2 43029.8 9 g [employer] 5 10:04:41 Date Recorded Body height Body mass index (BMI) Body weight Body temperature Heart rate Oxygen saturation Oxygen saturation in Arterial blood by Pulse oximetry Provider Name and Address Organization Details Last Updated DateTime 4 152.4 cm 51 kg/m2 721293. 61 g 100.9 [degF] 91 /min 98 % 98 % [employer] 4 14:23:29 Date Recorded Body height Body mass index (BMI) Body weight Body temperature Heart rate Oxygen saturation Oxygen saturation in Arterial blood by Pulse oximetry Provider Name and Address Organization Details Last Updated DateTime 5 148.59 cm 31.4 kg/m2 76291.6 3 g 99.6 [degF] 87 /min 100 % 100 % [employer] 5 12:41:39 Date Recorded Body height Body mass index (BMI) Body weight Body temperature Heart rate Oxygen saturation Oxygen saturation in Arterial blood by Pulse oximetry Provider Name and Address Organization Details Last Updated DateTime 4 152.4 cm 48.8 kg/m2 649576. 09 g 97.8 [degF] 79 /min 100 % 100 % Shell Ellis [employer] 4 09:36:33 Date Recorded Body height Body mass index (BMI) Body weight Oxygen saturation Oxygen saturation in Arterial blood by Pulse oximetry Heart rate Body temperature Systolic And Diastolic Provider Name and Address Organization Details Last Updated DateTime 5 149.86 cm 28.5 kg/m2 17488.2 4 g 98 % 98 % 82 /min 97.5 [degF] 102/72 mm[Hg] Anjana Brewster [employer] 5 16:37:12 Social History Question Answer Notes LastModified by Organizat ion Details LastModified Time Tobacco Smoking Status Never Smoker Dana lawler : 'Tobacc o/Alcoh ol/Supp lements '; Dana andersen : 'Never Smoker' ; Not Available [facility] 12/30/2021 22:58:45 Do You Have An [...] Or The Highest Degree You Have Received? [id number] Information not available 02/19/2025 Who Is Your Employer? 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 No Information not available 02/19/2025 What Was [...] Functional Status Question Answer Note LastModified by [employer] ion Details LastModified Time Do you use [...] independently without assistance or assistive devices? YESWOREST Information not available 08/20/2022 Do you have difficulty doing errands alone? No Information not available 08/20/2022 Are you able to care for yourself independently? Yes Information not available 08/20/2022 Do you have difficulty dressing, bathing, grooming, or toileting? No [facility] Information not available 08/20/2022 Mental Status Question Answer Note LastModified by Organizat ion Details LastModified Time Do you feel stressed (tense, restless, nervous, or anxious, or unable to sleep at night)? [id number] Information not available 02/19/2025 Do you have difficulty concentrating, remembering or making decisions? No [facility] Information n ot available 08/20/2022 Family History [...] Lung Disease N COPD N Depression N Dermatologic Disorders N Hypothyroidism N Defects or Inherited Disease N Developmental or Behavioral Disorders N Breast Problem N Difficulty Swallowing N Anesthesia Complications N History of STI N Meniere's disease N Anxiety Disorder N Muscle, Joint, or Bone Problems N Autoimmune disease N Vision or Eye Problems N Arthritis N Polyps N Infertility N Mental Disorder N Congenital Anomalies N Acid Reflux (GERD) N Cancer N Stroke N Neurologic/Epilepsy N Endometriosis N Bladder or Kidney Problems N High Cholesterol N Liver Disease N Psychiatric/Mental Health Condition N Organ Transplant N Dialysis N Schizophrenia N Fibromyalgia N Headaches N Kidney Disease N Allergies/Hayfever N Heart [...] virus, quadrivalent, PF 03/05/2020 completed Not Available [facility] 2 23:41:52 COVID-19, mRNA, LNP-S, PF, 100 mcg/0.5mL dose or 50 mcg/0.25mL dose 05/18/2020 completed Not Available [facility] 5 16:19:33 COVID-19, mRNA, LNP-S, PF, 100 mcg/0.5mL dose or 50 mcg/0.25mL dose 06/15/2020 completed Not Available [facility] 5 16:19:33 Influenza, split virus, quadrivalent, PF 04/25/2022 completed Not Available [facility] 5 16:19:33 Past Encounters Encounter ID Performer Location Encounter Start Date Encounter Closed Date Diagnosis/Indication Diagnosis SNOMED-CT Code Diagnosis ICD10 Code Diagnosis IMO Codes Diagnosis Note [id number] [facility] [address] [place] [address] 08/20/2022 14:19:05 08/21/2022 11:55:33 Acute viral pharyngitis 402926392 J02.9 Rest, increase fluids, throat lozenges, and continue allergy medication . F/u in 3-5 days if new or worsening symptoms. Body mass index 40+ - severely obese 929402734 Z68.42 Tobacco non-user 8194787 001 34983 Z13.89 [id number] Marily Diaz PA-C [address] [address] 09/01/2022 09:04:59 09/02/2022 09:41:55 Acute upper respiratory infection 21442181 J06.9 Recommend Amoxicilli n for 1 week. Continue current medication s. Recommend contacting her Obstetrici an regarding her tachycardi a and hypotensio n for further evaluation as precaution . F/u in 5-7 days if not improved. Normal 6762525 2 Z34.90 Body mass index 30+ - obesity 416018574 Z68.43 Healthy diet and regular activity as outlined by OB. Tobacco non-user [id number] 001 08844 Z13.89 [id number] [facility]C [facility] [address] [place] [address] 06/16/2023 10:06:22 06/22/2023 09:20:00 Acute viral pharyngitis [id number] J02.9 Rest, increase fluids, throat lozenges, and restart allergy medication . F/u in 3-5 days if new or worsening symptoms. Obesity 030348964 E66.9 Tobacco non-user [id number] 001 54171 Z13.89 [id number] [facility] [address] [place] [address] 06/21/2023 14:22:43 06/22/2023 09:22:17 Acute tonsillitis caused by Streptococcus [id number] 4591490 J03.00 Antibiotic as prescribed . Rest, increase fluids, Tylenol or Motrin for fever or pain, and increase fluids. Explained contagious nature of illness. F/u in 5-7 days if not improved. Obesity 554190377 E66.9 Tobacco non-user 0056101 001 48769 Z13.89 [id number] Marily Diaz PA-C [facility] [address] [place] [address] 01/10/2024 09:35:32 01/10/2024 12:12:55 Herpes zoster 9728053 B02.9 Explained to patient the symptoms correlate with shingles but rash has not presented itself. Recommend treatment. If symptoms do not improve will need further evaluation by PCP. F/u prn. Obesity 821581325 E66.9 Recommend healthy diet and exercise program. Tobacco non-user [id number] 001 83089 Z13.89 [id number] Marily Diaz PA-C [employer] [facility] [address] [place] [address] 05/09/2024 10:00:43 05/10/2024 12:26:09 Acute pharyngitis 309694746 J02.9 Cepacol throat lozenges, increase fluids and Tylenol for pain or fever. Acute maxi llary sinusitis 67489120 J01.00 Rest, increase fluids, Tylenol for fever or headache, humidifier . Continue nasal saline rinses and Flonase Body mass index 30+ - obesity 111998480 Z68.43 Healthy diet and regular activity as outlined by current weight loss program. Tobacco non-user [id number] 001 81398 Z13.89 [id number] Marily Diaz PA-C [employer] [facility] [address] [place] [address] 08/30/2024 12:33:07 08/31/2024 12:27:48 Acute urinary tract infection 159134161 N39.0 4719951 Antibiotic and Pyridium as prescribed . Tylenol or Motrin for fever or pain. Increase fluids. F/u in 3 days if not improved. Body mass index 30+ - obesity 858277273 E66.9 6436590 Healthy diet and regular activity as outlined by current weight loss program with current weight loss of 123 lbs in 12 months. Non-smoker 3833648 Z78.9 968578 [id number] YRIS Lake [address] [address] 02/19/2025 16:05:02 02/19/2025 17:20:02 Counseling 251389699 Z71.9 Menometrorrhagia 0968664 08 N92.1 34328 Family his tory of Psoriasis 669678810 Z84.[address] imulating hormone level above reference range 932646786 R79.89 364897 Edema of l ower extremity 801134873 R60.0 82374 Reduced libido 3838376 R 68.82 29286364 Serum ferr itin above reference range 297838078 R79.89 50103502 Polycystic ovary syndrome 665771881 E28.2 657640 HIV screening 958165031 Z11.4 21836079 Viral scre ening status 675943160 Z11.59 648958 Health Concerns Section Related Observation LastModified by Organization Detai ls LastModified Time None Recorded Concern Status LastModified by Organization Details LastModified Time None Recorded Advance Directives Directive N: Payers Insurance Date Sequence Insurance Name Policy Number Policy Goldstein Covered Member ID Goldstein Member ID Guarantor Name 02/23/2025 1 [id number] [id number] 9 Oliva H Vanegas [id number] [facility] Notes Date Note Type Note Provider Name and Address Organization Details Recorded Time 06/21/19 24 text/htm l Pediatric Sore ThroatReported by PatientHPIFor quality, patient reportspainful. For severity, patient reportsmild. For context, patient reportsothers with similar symptomsandexposure to strep. For associated symptoms, patient reportsheadache,fever, andfatiguebut reportsno cough,no nasal discharge,no nausea,no vomiting,no abdominal pain,no diarrhea, andno rash. For location, patient reportsbilateral. For duration, patient reportsstarted 4 day(s) ago. For alleviating factors, patient reportsthroat lozengesandnsaids. Sore ThroatReported by Patient Marily Diaz PA-C [address] [place], [address], [employer]. 06/21/2023 18:42:17 01/10/20 24 text/htm l General Rash/Skin LesionReported by Patient 33 yo white female presents with pain left ear with scalp sensitivity. Pain started 2 weeks ago with worsening the past week. Ear pain resolved then area behind ear and scalp became hypersensitive to light touch. No noticeable rash. Sensitivity has gotten worse especially with washing or brushing her hair or simple light touch. No history of shingles. Marily Diaz PA-C [address] [place], [address], [employer]. 01/10/2024 09:59:12 05/09/19 25 text/htm l Sinusitis/AllergyReported by PatientHPIFor quality, patient reportscongestedandcolored phlegm. For associated symptoms, patient reportssinus pain cheekandsore throatbut reportsno fever,no cough, andno nausea or vomiting. For location, patient reportsmaxillary. For severity, patient reportsmild. For onset/timing, patient reportsgradual onset,initially started 2weeks ago, andprogressively worse over last 2days. For context, patient reportsno recent upper respiratory infectionandno recent sick contacts. For alleviating factors, patient reportssaline nasal rinsesandnasal steroid flonase. For aggravating factors, patient reportscold weather(swallowing makes throat hurt more). For risk factors, patient reportsno current smoking or tobacco use. Marily Diaz PA-C [address] [place] [address], [address], [employer]. 05/09/2024 10:55:32 08/31/19 25 text/htm l Lower Urinary Tract Symptoms (LUTS)Reported by PatientHPIFor associated symptoms, patient reportsabdominal pain,urgency,frequency, anddysuriabut reportsno groin pain,no pelvic pain,no flank pain,no low back pain,no chills,no fever,no constipation,no diarrhea,no nausea,no vomiting,no straining,no incontinence,no costovertebral angle tenderness,no nocturia,no urine odor,no gross hematuria,no abnormal vaginal discharge, andno vaginal itching or burning. For location, patient reportsbladder. For quality, patient reportsdull,aching, andpressure. For severity, patient reportsworseningandmild. For onset/timing, patient reports4-10 times a day. For duration, patient reportsacute(started 2 days ago). For context, patient reportsdenies excessive fluid intake,no dyspareunia, anddenies new medication treatment(drank soda last week). For aggravating factors, patient reportscola. Marily Diaz PA-C [address] [place] [address], [address], [employer] 08/30/2024 14:10:42 02/20/20 25 text/htm l ROS as noted in the HPI Patient presents to establish careHistory of ADHD. Was on Vyvanse in the past. 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 Has lost weight, eats better, exercises daily and still has no energy and feels achy and sore all the time.Has no sex drive and SSRI made it worseHas swelling in her lower extremities YRIS Lake [address] [place] [address], [place], [address], [facility] [employer] 02/22/2025 16:12:12 OBGyn Episode No OBEpisode recorded.
--- NOTE | 2025-03-08 07:39 | US_ITS ---
FINAL REPORT TECHNIQUE: Multiple transverse and longitudinal images CLINICAL HISTORY: ABNORMAL FINDING OF BLOOD CHEMISTRY COMPARISON: None FINDINGS: Innumerable gallstones are present in the gallbladder, 9 mm or less in size. No gallbladder wall thickening is present. No biliary ductal dilatation is appreciated. No fluid collections are seen. Limited portions of the right liver are unremarkable. Limited portions of the right kidney are unremarkable. Pancreas is largely obscured. IMPRESSION: 1. Innumerable gallstones are present in the gallbladder, 9 mm or less in size, without biliary ductal dilatation. 2. No sonographic evidence of cirrhosis is identified. Reviewed, Interpreted and Dictated by Jak Rain MD Transcribed by Jenny Becker Authenticated and [facility]
== END 2025-03-08 23:59 | disposition home or self-care (01) ==
LOC: RAD 07:36
PROVIDERS: PCP Physician Assistant; Visit Provider Physician Assistant
DX: K80.20 Calculus of gallbladder without cholecystitis without obstruction (principal); R79.89 Other specified abnormal findings of blood chemistry
CPT/HCPCS: 76705

== ENCOUNTER 2025-03-14 16:21 | Outpatient (CLI) | payer BC, SELFPAY ==
--- OUTSIDE RECORDS SUMMARY | 2024-12-07 10:00 | XMS_ITS ---
Author Organization [facility] Address [address] [facility] [address] [place] [address] Care Team Providers Care Nib Inspector Name Role Phone Elvira Tomlinson Unavailable [phone] Sultana Damian Unavailable [phone] REASON FOR VISIT 4 week follow up [...] nonsmoker Encounters Encounter Location Date Provider Diagnosis [address] [place] [address] 12/07/2024 Sultana Damian Plan Of Treatment No Information Progress Notes * Oliva HENSONDOB:1990 (34 yo F)Acc No.[id number]:12/07/2024 Progress Note Patient: Carlos Alberto gerber Oliva Provider: Nicolle Damian APRN :1990 A ge:34 Y S ex:Female Date:12/07/2024 Address:[address] [id number] Subjective: * Chief Complaints: * 4 week follow up * Medical History: Anemia Anxiety Asthma Depression Chronic hypertension in Chronic hypertension in * Optical Instrument Inspector History: M enstrual History: L MP: 0 [...] 11 oz, breast feed, Dr. Tomlinson at [place], 40 weeks,. P regnancy # 2: , [...] stated as uncontrolled, Unspecified essential hypertension. P atececilio Grand Mother: diagnosed with Diabetes mellitus without [...] Electronic signature of Darrick Damian NP on 03/14/2025 at 04:33 PM EST Sign off status: Pending Visit Status: R /S (Rescheduled) * Provider: Nicolle Damian APRN Date: 0 12/07/2024 Generated for Julio andersen/Charlie/eTransmitting on: 1 05/14/2024 04:33 PM EST
--- OUTSIDE RECORDS SUMMARY | 2025-03-09 09:15 | XMS_ITS | Encounter Summary ---
Author Organization [facility] Address [address] [place] [address] Care Team Providers Care Vault Service Mechanic Name Role Phone Ava Kinsey Primary Care Provider [phone] Reason for Visit * Reason Comments Thyroid Problem Abnormal Lab * Consultation (Routine) - Closed Specialty Diagnoses / Procedures Referred By Dusty mendoza Referred To Contact Endocrinology Diagnoses Abnormal TSH Sultana Damian, PATIENT TRANSPORTER [address] [place] [address] Phone: tel: fax: [facility] [address] Phone: tel: fax: Referral ID Status Reason Start Date Expiration Date Visits Re quested Visits Authorized [id number] Closed 01/15/2025 04/16/2026 1 1 Encounter Details Date Type Department Care Team (Late st Contact Info) Description 03/09/2025 9:15 AM EST Office Visit [facility] [address] [address] Ewelina Faye PA [address] [place] [id number] Elevated TSH (Primary Dx) Social History Tobacco Use Types Packs/Day Years Used Date Smoking Tobacco: Never Smokeless Tobacco: Never Alcohol Use Standard Drinks/Week Comments Yes 0 (1 standard drink = 0.6 oz pur e alcohol) Social AUDIT-C Answer Date Recorded Q1: How often do you have a drink containing alcohol? Never 10/14/2022 Q2: How many drinks containi ng alcohol do you have on a typical day when you are drinking? Patient does not drink Q3: How often do you have si x or more drinks on one occasion? Never 10/14/2022 Sargeant Depression Scale Answer Date Recorded Sargeant Depression Scale Total 1 10/14/2022 The thought [...] Preferred Language Not on file 02/05/2023 Comments Unknown Sex and Gender Information Value Date Recorded Sex Assigned at Female 03/07/2025 8:52 AM EST Legal Sex Female 4:40 PM EST Gender Identity Not on file Sexual Orientation Not on file documented as of this encounter Last Filed Vital Signs Vital Sign Reading Time Taken Comments Blood Pressure 110/60 03/09/2025 9:09 AM EST Pulse 75 03/09/2025 9:09 AM EST Temperature - - Respiratory Rate - - Oxygen Saturation 100% 03/09/2025 9:09 AM EST Inhaled Oxygen Concentration - - Weight 62.1 kg (137 lb) 03/09/2025 9:09 AM EST Height 142.2 cm (4' 8 ) 03/09/2025 9:09 AM EST Body Mass Index 30.71 03/09/2025 9:09 AM EST documented in this encounter Progress Notes * Ewelina Faye PA - 03/12/2025 9:30 PM ESTAssociated Problem(s): Elevated TSH Patient with fluctuating and intermittently elevated TSH level over the past year. Has also had significant weight loss over the last year and a half. Started on levothyroxine 25 mcg about 6 weeks ago. She has noticed some improvement in fatigue levels but is not sure she wants to stay on a daily me dication if not necessary. Will check Lauren's antibodies and recheck thyroid levels. If no evidence of Lauren's, can consider a trial of coming off levothyroxine. Will make further recommendations based on results. * Ewelina Faye PA - 03/09/2025 9:15 AM EST Images from the original note were not included. Office Note Date: 03/09/2025 Patient Name: Oliva Vanegas : 1990 Chief Complaint Patient presents with Thyroid Problem Abnormal Lab History of Present Illness: Oliva Vanegas is a 34 y.o. female who presents for Thyroid Problem and Abnormal Lab Patient is seen for a new patient evaluation Patient was taking Zepbound/Mounjaro for weight loss and she would get labs checked routinely whiletaking it. Had thyroid levels checked as part of this. Has had fluctuating TSH levels. Has had someissues with hair loss and fatigue. Has struggled to lose weight for years. Had several consistently elevated TSH levels, 4.6 and 5.3 so she was started on levothyroxine. 06/05/24 T4 1.40 T3 2.50 TSH: 5.31 08/31/2024 T4: 1.35 T3: 2.74 TSH: 3.24 11/08/2024 T4: 1.41 T3: 2.67 TSH: 3.8 01/02/2025 T4: 1.32 TSH: 4.6 Started levothyroxine 25 mcg 02/20/2025 T4: 1.51 T3: 2.6 TSH: 4.1 Has lost 135 lbs in a year and a half. Has been maintaining her weight for 5-6 months. Steroid none Biotin takes collagen/biotin daily Subjective Patient was born where: [place]. Facial radiation exposure: No. High iodine intake: No Family hx of thyroid disease: Yes, describe: paternal uncle with thyroid cancer; paternal GM may have had thyroid disease Review of Systems: Review of Systems Constitutional: Positive for fatigue. Negative for activity change, appetite change and unexpected weight change. Respiratory: Negative for chest tightness and shortness of breath. Cardiovascular: Negative for palpitations. Gastrointestinal: Negative for abdominal pain. Musculoskeletal: Negative for myalgias. Neurological: Negative for tremors and numbness. Psychiatric/Behavioral: The patient is nervous/anxious. The following portions of the patient's history were reviewed and updated as appropriate: allergies, current medications, past family history, past medical history, past social history, past surgicalhistory, and problem list. Objective Visit Vitals BP 110/60 (BP Location: Left arm, Patient Position: Sitting, Cuff Size: Adult) Pulse 75 Ht 142.2 cm (56 ) Wt 62.1 kg (137 lb) SpO2 100% No BMI 30.71 kg/m?? Physical Exam: Physical Exam Constitutional: Appearance: She is well-developed. HENT: Head: Normocephalic and atraumatic. Right Ear: External ear normal. Left Ear: External ear normal. Nose: Nose normal. Eyes: Extraocular Movements: Extraocular movements intact. Conjunctiva/sclera: Conjunctivae normal. Neck: Thyroid: No thyroid mass, thyromegaly or thyroid tenderness. Cardiovascular: Rate and Rhythm: Normal rate. Pulmonary: Effort: Pulmonary effort is normal. Musculoskeletal: General: Normal range of motion. Cervical back: Normal range of motion. Skin: General: Skin is warm. Neurological: Mental Status: She is alert and oriented to person, place, and time. Motor: No tremor. Psychiatric: Behavior: Behavior normal. Thought Content: Thought content normal. Judgment: Judgment normal. Assessment / Plan Assessment & Plan: Problem List Items Addressed This Visit Endocrine and Metabolic Elevated TSH - Primary Current Assessment & Plan Patient with fluctuating and intermittently elevated TSH level over the past year. Has also had significant weight loss over the last year and a half. Started on levothyroxine 25 mcg about 6 weeks ago. She has noticed some improvement in fatigue levels but is not sure she wants to stay on a daily me dication if not necessary. Will check Lauren's antibodies and recheck thyroid levels. If no evidence of Lauren's, can consider a trial of coming off levothyroxine. Will make further recommendations based on results. Relevant Medications ibuprofen (ADVIL,MOTRIN) 600 MG tablet levothyroxine (SYNTHROID, LEVOTHROID) 25 MCG tablet Other Relevant Orders T3, Free T4, Free Thyroglobulin Antibody Thyroid Peroxidase Antibody TSH Return in about 4 months (around 2025) for Follow up. Portions of this note were completed with voice recognition program. Electronically signed by Ewelina Faye PA-C [facility] Kaitlynn 03/09/2025 documented in this encounter Plan of Treatment Upcoming Encounters Date Type Department Care Team (Late st Contact Info) Description 07/12/2025 8:30 AM EDT Office Visit [facility] [address] [phone] Ewelina Faye PA [address] [address] Scheduled Orders Name Type Priority Associated Diagnoses Orde r Schedule T3, Free Lab Routine Elevated TSH Expected: 03/09/2025 (Approximate), Expires: 03/09/2026 T4, Free Lab Routine Elevated TSH Expected: 03/09/2025 (Approximate), Expires: 03/09/2026 Thyroglobulin Antibody Lab Routine Elevated TSH Expected: 03/09/2025 (Approximate), Expires: 03/09/2026 Thyroid Peroxidase Antibody Lab Routine Elevated TSH Expected: 03/09/2025 (Approximate), Expires: 03/09/2026 TSH Lab Routine Elevated TSH Expected: 03/09/2025 (Approximate), Expires: 03/09/2026 documented as of this encounter Visit Diagnoses Diagnosis Elevated TSH- Primary Other abnormal blood chemistry documented in this encounter Care Teams Vault Service Mechanic Relationship Specialty Start Date End Date Ava Kinsey PA [address] [place] [address] PCP - General 03/07/25 documented as of this encounter
--- OUTSIDE RECORDS SUMMARY | 2025-03-14 16:33 | XMS_ITS | Encounter Summary ---
[facility] Address [address] [place] [address] Care Team Providers Care Ammunition Storekeeper Name Role Phone Ava Kinsey Primary Care Provider [phone] Encounter Details Date Type Department Care Team (Latest Contact Info) Description 03/09/2025 Travel Social History Tobacco Use Types Packs/Day Years [...] more drinks on one occasion? Never 10/14/2022 [place] Depression Scale Answer Date Recorded [place] Depression Scale Total 1 10/14/2022 The thought [...] on file documented as of this encounter Plan of Treatment Upcoming Encounters Date Type Department Care Team (Late st Contact Info) Description 07/12/2025 8:30 AM EDT Office Visit [facility] [address] [address] Ewelina Faye PA [address] [address] documented as of this encounter Visit Diagnoses Not on filedocumented in this encounter Care Teams Ammunition Storekeeper Relationship Specialty Start Date End Date Ava Kinsey PA [address] [place] [address] PCP - General 03/07/25 documented as of this encounter
--- OUTSIDE RECORDS SUMMARY | 2025-03-14 16:33 | XMS_ITS | Patient Health Record ---
Author Organization [facility] Address [address] [place] [address] Care Team Providers Care Manager Production Name Role Phone Elvira Tomlinson Unavailable [phone] Sultana Damian Unavailable [phone] Allergies Allergen (clinical drug ingredient) Drug/Non Drug [...] 140-450 10*3/mm3 Lab specimens received at a [facility].?See result details for the performing location [...] mL/min/1.73 Lab s pecimens received at a [facility].?See result details for the performing location information. TSH Reviewed date:11/09/2024 08:43:57 AM Interpretation:Normal Performing Lab: Notes/Report: THYROID STIMULATING HORMONE (TSH) UIU/ML 3.800 0.270-4.20 uIU/mL Lab specimens received at a [facility].?See result details for the performing location information. VITAMIN D 25 HYDROXY Reviewed date:11/09/2024 08:42:31 AM Interpretation:69.8 Performing Lab: Notes/Report: Reference Range for Total Vitamin D 25(OH) Deficiency <20.0 ng/mL Insufficiency 21-29 ng/mL Sufficiency 30-100 ng/mL Toxicity >100 ng/ml VITAMIN D 25-HYDROXY 69.8 30.0-100.0 ng/ml Lab specimens received at a [facility].?See result details for the performing location information. T4, FREE Reviewed date:11/09/2024 08:43:57 AM Interpretation:Normal Performing Lab: Notes/Report: FREE T4 1.41 0.92-1.68 ng/dL Lab speci mens received at a [facility].?See result details for the performing location information. T3, FREE Reviewed date:11/09/2024 08:43:57 AM Interpretation:Normal Performing Lab: Notes/Report: T3 FREE 2.67 2.00-4.40 pg/mL Lab speci mens received at a [facility].?See result details for the performing location [...] 0.66 Lab sp ecimens received at a [facility].?See result details for the performing location information. TESTOSTERONE, FREE, TOTAL Reviewed date:01/11/2025 09:11:50 AM Interpretation:13/0.2 Performing Lab: Notes/Report: Performed at: [address] [id number] Machine Sprayer: Anam Harris PhD, Phone: [phone] Performed at: [place] [address] [place], [place] [id number] Machine Sprayer: Jv Blanco MD, Phone: [phone] TESTOSTERONE, TOTAL (REF) 13 8-60 ng/dL TESTOSTERONE FREE <0.2 0.0-4.2 pg/mL Lab specimens received at a [facility].?See result details for the performing location [...] 677.0 Lab speci mens received at a [facility].?See result details for the performing location information. FOLLICLE STIMULATING HORMONE Reviewed date:01/03/2025 08:53:04 AM Interpretation:Normal Performing Lab: Notes/Report: FSH Reference Ranges: Adult Males: 1.5-12.4 mIU/mL Adult Females: Folicular Phase ?3.5-12.5 mIU/ml Ovulation Phase ?4.7-21.5 mIU/ml Lutal Phase ? ? ?1.7-7.7 mIU/ml Postmenopausal ? 25.8-134.8 mIU/ml FOLLICLE STIMULATING HORMONE 3.76 Lab specimens received at a [facility].?See result details for the performing location information. TSH Reviewed date:01/03/2025 01:43:35 PM Interpretation:4.6 Performing Lab: Notes/Report: THYROID STIMULATING HORMONE (TSH) UIU/ML 4.600 0.270-4.20 uIU/mL H Lab specimens received at a [facility].?See result details for the performing location information. VITAMIN D 25 HYDROXY Reviewed date:01/03/2025 08:53:04 AM Interpretation:Normal Performing Lab: Notes/Report: Reference Range for Total Vitamin D 25(OH) Deficiency <20.0 ng/mL Insufficiency 21-29 ng/mL Sufficiency 30-100 ng/mL Toxicity >100 ng/ml VITAMIN D 25-HYDROXY 82.1 30.0-100.0 ng/ml Lab specimens received at a [facility].?See result details for the performing location information. T4, FREE Reviewed date:01/03/2025 08:53:04 AM Interpretation:Normal Performing Lab: Notes/Report: FREE T4 1.32 0.92-1.68 ng/dL Lab speci mens received at a [facility].?See result details for the performing location information. Reason For Referral Reason abnromal tsh Diagnosis 1 Abnormal TSH (R94.6) Referral Organization [facility] Referring Provider First Name Sultana Referring [...] Status W/U Status Risk Notes Problem Anxiety (29311426) Anxiety (F41.9) Active confirmed Problem Tachycardia (2126422) Tachycardia (R00.0) Active confirmed Problem Irregular periods (47476271) Irregular bleeding (N92.6) Active confirmed Vital Signs Blood pressure diastolic 70 mm Hg 01/02/2025 Height 60 in 01/02/2025 Blood pressure systolic 108 mm Hg 01/02/2025 Weight 139.0 lbs 01/02/2025 BMI 27.14 kg/m2 01/02/2025 Encounters Encounter Location Date Provider Diagnosis [facility] [address] [facility] [address] [place] [address] 01/03/2025 [facility] [address] [facility] [address] [place] [address] 01/08/2025 [facility] [address] [facility] [address] [place] [address] 01/09/2025 [facility] [address] [facility] [address] [place] [address] 01/11/2025 [facility] [address] [place] [address] 01/02/2025 [facility] Anxiety F41.9 and Decreased libido R68.82 [facility] [address] [place] [address] 11/08/2024 [facility] Anxiety F41.9 and Irregular bleeding N92.6 Assessments Encounter Date Diagnosis (ICD Code) Assessment [...] not already more regular. Plan Of Treatment No Information Insurance Providers Payer Name Payer Address Payer Phone Subscriber Number Group Number Insured Name Patient Relationship to Insured Coverage Start Date Coverage End Date Toni MCKEON [address] [place] [address] [id number] Oliva Vanegas Self - patient is the insured 2 Medical (General) History Medical History History ICD Code Anemia Anxiety Asthma Depression Chronic hypertension in O10.91 9 Chronic hypertension in Surgical History Surgery Date(Month/Year) Tonsillectomy Laparoscope Oral Surgery with sterilization 10/14/2022 Hospitalization History Reason Date(Month/Year) 10/14/22 05-05-2017
--- OUTSIDE RECORDS SUMMARY | 2025-03-14 16:33 | XMS_ITS | Clinical Summary ---
[facility] Address [address] [place] [address] Care Team Providers Care Delphi Developer Name Role Phone Ava Kinsey Primary Care Provider [phone] Allergies Active Allergy Reactions Criticality Noted Date Comments Hydrocodone-Acetaminophen Itching 06/03/2016 Medications albuterol sulfate HFA 108 (90 Base) MCG/ACT inhaler INHALE 2 PUFFS INTO THE LUNGS EVERY 4 HOURS NEEDED FOR COUGH 3 Active dilTIAZem CD (CARDIZEM CD) 120 MG 24 hr capsule Take 1 capsule by mouth Daily. 3 Active fluticasone (FLONASE) 50 MCG/ACT nasal spray 2 sprays by Each Nare route Daily. 3 Active nystatin (MYCOSTATIN) 849313 UNIT/GM powder 3 Active omeprazole (priLOSEC) 20 MG capsule Take 1 capsule by mouth Daily. 3 Active levocetirizine (XYZAL) 5 MG tablet Take 1 tablet by mouth Every Evening. Active Vit-Fe Fumarate-FA ( 27-1) 27-1 MG tablet tablet Take by mouth Daily. Active docusate sodium 100 MG capsule Take 1 capsule by mouth 2 (Two) Times a Day As Needed for Constipation. 60 capsule 10/16/2022 10:46 AM EDT 3 Active ibuprofen (ADVIL,MOTRIN) 600 MG tablet Take 1 tablet by mouth Every 6 (Six) Hours. 60 tablet 10/16/2022 10:46 AM EDT 3 Active levothyroxine (SYNTHROID, LEVOTHROID) 25 MCG tablet Take 1 tablet by mouth Daily. 5 05/27/19 26 Active sertraline (ZOLOFT) 25 MG tablet Take 1 tablet by mouth Daily. 5 05/27/19 26 Active Mounjaro 10 MG/0.5ML solution auto-injector Inject 10 mg under the skin into the appropriate area as directed 1 (One) Time Per Week. 5 Active Active Problems Problem Noted Date Diagnosed Date Elevated TSH 03/12/2025 Assessment & Plan (03/12/2025 9:30 PM EST): Patient with fluctuating and intermittently elevated TSH level over the past year. Has also had significant weight loss over the last year and a half. Started on levothyroxine 25 mcg about 6 weeks ago. She has noticed some improvement in fatigue levels but is not sure she wants to stay on a daily medication if not necessary. Will check Lauren's antibodies and recheck thyroid levels. If no evidence of Lauren's, can consider a trial of coming off levothyroxine. Will make further recommendations based on results. Term 10/05/2022 Encounters Date Type Department Care Team Description 03/09/2025 9:15 AM EST Office Visit [facility] [address] [facility] [address] [place] [address] Ewelina Faye PA Elevated TSH (Primary Dx) 03/09/2025 Travel 01/02/2025 3:55 PM EDT Lab [facility] [place] [address] [place] [id number] Decreased libido 01/02/2025 Travel from Last 3 Months Family History Medical History Relation Name Comments Bipolar disorder Brother Diabetes Father Hypertension Father Diabetes Maternal Grandfather Hypertension Maternal Grandfather Hypertension Maternal Grandmother Arthritis Mother Fibromyalgia Mother Psoriasis Mother No Known Problems Paternal Grandfather Cancer Paternal Grandmother Diabetes Paternal Grandmother Hypertension Paternal Grandmother Relation Name Status Comments Brother Alive Father Alive Maternal Grandfather Maternal Grandmother Alive Mother Alive Paternal Grandfather Paternal Grandmother Alive Social History Tobacco Use Types Packs/Day Years Used Date Smoking Tobacco: Never Smokeless Tobacco: Never Tobacco Cessation:Counseling Given: Not Answered Alcohol Use Standard Drinks/Week Comments Yes 0 [...] more drinks on one occasion? Never 10/14/2022 Bristow Depression Scale Answer Date Recorded Bristow Depression Scale Total 1 10/14/2022 The thought [...] Pulse 75 03/09/2025 9:09 AM EST Temperature 36.8 C (98.2 F) 10/16/2022 7:25 AM EDT Respiratory Rate 20 10/16/2022 7:25 AM EDT Oxygen Saturation 100% 03/09/2025 9:09 AM EST Inhaled Oxygen Concentration - - Weight 62.1 kg (137 lb) 03/09/2025 9:09 AM EST Height 142.2 cm (4' 8 ) 03/09/2025 9:09 AM EST Body Mass Index 30.71 03/09/2025 9:09 AM EST Plan of Treatment Upcoming Encounters Date Type Department Care Team (Late st Contact Info) Description 07/12/2025 8:30 AM EDT Office [facility] [address] [facility] [address] [place] [address] Ewelina Faye PA [address] [facility] [address] [place] [address] Health Maintenance Due Date Last Done [...] - 100.0 ng/ml 01/02/2025 11:54 PM EDT [facility] Blood Venipuncture / Unknown 01/02/2025 3:58 PM EDT 01/02/2025 4:01 PM EDT [facility] - 01/02/2025 11:54 PM EDT Reference Range for Total Vitamin D 25(OH) Deficiency <20.0 ng/mL Insufficiency 21-29 ng/mL Sufficiency 30-100 ng/mL Toxicity >100 ng/ml [employer]ultana [employer] LAB BLOOD ORDERABLES Final Re sult [facility]
[address] [place] [address], * Progesterone (01/02/2025 3:58 PM EDT) Progesterone 0.66 ng/mL 01/03/2025 12:28 AM EDT [facility] Blood Venipuncture / Unknown 01/02/2025 3:58 PM EDT 01/02/2025 4:01 PM EDT [facility] - 01/03/2025 12:28 AM EDT Progesterone Reference Ranges: Adult Males: 0.0-0.5 ng/mL Adult Femles: Follicular phase 0.1-0.9 ng/mL Ovulation phase 0.1-12.0 ng/mL Luteal phase 1.8-23.9 ng/mL Postmenopausal 0.0-0.1 ng/mL : First Trimester 11.0-44.3 ng/mL Second Trimester 25.4-83.3 ng/mL Third Trimester 58.7-214.0 ng/mL Results may be falsely increased if patient taking Biotin. [facility] BLOOD ORDERABLES Final Re sul [facility]
[address] [place] [address], * Estradiol (01/02/2025 3:58 PM EDT) Estradiol 677.0 pg/mL 01/03/2025 12:28 AM EDT [facility] Blood Venipuncture / Unknown 01/02/2025 3:58 PM EDT 01/02/2025 4:01 PM EDT Narrative [facility] - 01/03/2025 12:28 AM EDT Estradiol Reference Ranges: Adult Males: 7.6-42.6 pg/mL Adult Femles: Follicular phase 12.5-166.0 pg/mL Ovulation phase 85.8-498.0 pg/mL Luteal phase 43.8-211.0 pg/mL Postmenopausal <6.0-54.7 pg/mL : First Trimester 215.0- >4300.0 pg/mL Child (1-10 years): Male <6.0-20.0 pg/mL Female 6.0-27.0 pg/mL Results may be falsely increased if patient taking Biotin. [facility] BLOOD ORDERABLES Final [facility]
[address] [place] [address], * Testosterone, Free, Total (01/02/2025 3:58 PM EDT) Testosterone, Total 13 8 - 60 ng/dL 01/11/2025 1:07 AM EDT [facility] Testosterone, Free <0.2 0.0 - 4.2 pg/mL 01/11/2025 1:07 AM EDT [facility] Blood Venipuncture / Unknown 01/02/2025 3:58 PM EDT 01/02/2025 4:01 PM EDT Narrative [facility] - 01/11/2025 1:07 AM EDT Performed at: - [address] [id number] Cat Wagon Operator: Anam Harris PhD, Phone: [phone] Performed at: [address] [id number] Cat Wagon Operator: Jv Blanco MD, Phone: [phone] [facility] LAB BLOOD ORDERABLES Final Re sult Performing Organization Address City/[facility]/ZIP Co de Phone Number [address] [address], [place] [phone] * (ABNORMAL) TSH (01/02/2025 3:58 PM EDT) TSH 4.600(H) 0.270 - 4.200 uIU/mL 01/03/2025 12:28 AM EDT [facility] Blood Venipuncture / Unknown 01/02/2025 3:58 PM EDT 01/02/2025 4:01 PM EDT [facility] BLOOD ORDERABLES Final Re sult [facility]
[address] [place] [address], * T4, Free (01/02/2025 3:58 PM EDT) Free T4 1.32 0.92 - 1.68 ng/dL 01/03/2025 12:28 AM EDT [facility] Blood Venipuncture / Unknown 01/02/2025 3:58 PM EDT 01/02/2025 4:01 PM EDT [facility] BLOOD ORDERABLES Final Re sult Performing Organization Address City/[facility]/ZIP Co de Phone Number [facility]
[address] [place] [address], * Follicle Stimulating Hormone (01/02/2025 3:58 PM EDT) Pathologist [facility] FSH 3.76 mIU/mL 01/03/2025 12:28 AM EDT [facility] Blood Venipuncture / Unknown 01/02/2025 3:58 PM EDT 01/02/2025 4:01 PM EDT Narrative [facility] - 01/03/2025 12:28 AM EDT FSH Reference Ranges: Adult Males: 1.5-12.4 mIU/mL Adult Females: Folicular Phase 3.5-12.5 mIU/ml Ovulation Phase 4.7-21.5 mIU/ml Lutal Phase 1.7-7.7 mIU/ml Postmenopausal 25.8-134.8 mIU/ml [facility] LAB BLOOD ORDERABLES Final Re sult Performing Organization Address [facility] Co de Phone Number [facility]
[address] [place] [address], * LABS SCANNED (01/02/2025) [facility] LAB BLOOD ORDERABLES Final Re sult * Hepatitis C Antibody (03/11/2022 4:54 PM EST) Pathologist [facility] Hepatitis C Ab Non-Reacti ve Non-Reacti ve 03/12/2022 2:08 AM EST [facility] Blood Venipuncture / Unknown 03/11/2022 4:54 PM EST 03/11/2022 4:54 PM EST Narrative [facility] - 03/12/2022 2:08 AM EST Results may be falsely decreased if patient taking Biotin. Elvira Tomlinson MD LAB BLOOD ORDERABLES Final Re sult [facility]
[address] [place] [address], from Last 3 Months or Most Recently Relevant to Health Maintenance Insurance [employer] Advance Directives * CPR (Attempt to Resuscitate) [...] Of Support Discussed With: Patient Care Teams Delphi Developer Relationship Specialty Start Date End Date Ava Kinsey PA [address] [place] [address] [facility] - General 03/07/25
--- OUTSIDE RECORDS SUMMARY | 2025-03-14 16:33 | XMS_ITS | Clinical Summary ---
Author Organization Healthcare Address [address] [place] [address] Care Team Providers Care Powder Guard Name Role Phone Unavailable Primary Care Provider [...]
[2025-03-14 17:23] LABS: Free T4 (Free Thyroxine) 1.40 ng/dl (0.78-2.19)
[2025-03-14 17:36] LABS: Thyroid Stimulating Hormone 2.34 uIU/mL (0.465-4.68)
[2025-03-16 04:54] LABS: Triiodothyronine (T3) Free 2.8 pg/mL (2.0-4.4)
== END 2025-03-14 23:59 | disposition home or self-care (01) ==
LOC: LAB 16:21
PROVIDERS: PCP Physician Assistant; Visit Provider Physician Assistant Medical
DX: R79.89 Other specified abnormal findings of blood chemistry (principal)
CPT/HCPCS: 36415; 84439; 84443; 84481; 86376; 86800